=== PATIENT | male | born 1970 | race Caucasian/White ===

== ENCOUNTER 2020-08-15 10:38 | Outpatient (REF) | payer BC, SELFPAY ==
[2020-08-15 10:42] LABS: MANUAL DIFF FLAG NO
[2020-08-15 10:50] LABS: Basophils Absolute Auto 0.1 X10*3/uL (0.0-0.2); Eosinophils Absolute Auto 0.2 X10*3/uL (0.0-0.4); Eosinophils Percent Auto 3.2 % (0-4); Hematocrit 42.6 % (42-52); Hemoglobin 14.4 g/dl (14.0-18.0); Imm Gran Abs Auto 0.04 X10*3/uL (0.00-0.03); Imm Gran Pct Auto 0.6 % (0.0-0.4); Lymphocytes Percent Auto 32.6 % (20-40); Mean Corpuscular HGB Conc 33.8 g/dl (31.0-36.0); Mean Corpuscular Hemoglobin 29.6 pg (27.0-33.0); Mean Corpuscular Volume 87.7 fL (80-98); Mean Platelet Volume 10.3 fL (9.4-12.4); Monocytes Absolute Auto 0.6 X10*3/uL (0.1-1.2); Monocytes Percent Auto 9.6 % (2-11); Neutrophils Absolute Auto 3.3 X10*3/uL (2.0-8.3); Platelet Count 238 X10*3/uL (160-400); Red Blood Count 4.86 X10*6/uL (4.60-5.80); Red Cell Distribution Width 12.9 % (11.0-16.0); White Blood Count 6.2 X10*3/uL (4.8-10.8)
[2020-08-15 11:04] LABS: Glucose Urine UA NEG (NEG); Leukocyte Esterase Urine NEG (NEG); Nitrite Urine NEG (NEG); Specific Gravity - Urine <= 1.005 (1.005-1.025); Urine Blood NEG (NEG); Urine Ketones NEG (NEG); Urine Protein NEG (NEG-TRACE)
[2020-08-15 11:09] LABS: Appearance Urine CLEAR; Color Urine STRAW
[2020-08-15 11:19] LABS: Estimated Average Glucose 88 mg/dL; Hemoglobin A1c % 4.7 %
[2020-08-15 11:32] LABS: Creatinine Urine 49.36 mg/dL; Microalbumin Urine < 5.0 mg/L
[2020-08-15 11:57] LABS: Alanine Aminotransferase 36 U/L (0-40); Albumin Level 4.5 g/dL (3.5-5.0); Alkaline Phosphatase 68 U/L (39-117); Anion Gap 13 (12-20); Aspartate Amino Transferase 23 U/L (5-37); Bilirubin Total 0.6 mg/dL (0.0-1.0); Blood Urea Nitrogen 15 mg/dL (9-16); Calcium 9.1 mg/dL (8.4-10.2); Carbon Dioxide 23 mmol/L (22-29); Chloride 106 mmol/L (96-108); Cholesterol 147 mg/dL; Estimated Glomerular Filt Rate > 60; Glucose Fasting 96 mg/dL (60-99); HDL Cholesterol 47 mg/dL; LDL Cholesterol Calculated 83 mg/dl; Sodium 138 mmol/L (135-145); Triglycerides 85 mg/dL
[2020-08-15 12:07] LABS: PSA,Total (Free>4and<10) 0.36 ng/mL (0.00-4.00)
== END 2020-08-15 10:39 | disposition home or self-care (01) ==
LOC: HO.LNP 10:38
PROVIDERS: Visit Provider Internal Medicine
DX: Z00.00 Encounter for general adult medical examination without abnormal findings (principal); Z12.5 Encounter for screening for malignant neoplasm of prostate; E11.9 Type 2 diabetes mellitus without complications; I10 Essential (primary) hypertension
CPT/HCPCS: 80053; 80061; 81003; 82043; 83036; 84153; 85025

== ENCOUNTER 2021-10-06 13:52 | Outpatient (REF) | payer BC, SELFPAY ==
[2021-10-06 13:56] LABS: MANUAL DIFF FLAG NO
[2021-10-06 13:59] LABS: Appearance Urine HAZY; Color Urine YELLOW; Glucose Urine UA NEG (NEG); Leukocyte Esterase Urine NEG (NEG); Nitrite Urine NEG (NEG); PH 6.5 (5.0-8.0); Specific Gravity - Urine <= 1.005 (1.005-1.025); Urine Blood NEG (NEG); Urine Ketones NEG (NEG); Urine Protein NEG (NEG-TRACE)
[2021-10-06 14:00] LABS: Basophils Absolute Auto 0.1 X10*3/uL (0.0-0.2); Eosinophils Absolute Auto 0.2 X10*3/uL (0.0-0.4); Eosinophils Percent Auto 2.5 % (0-4); Hematocrit 43.5 % (42.0-52.0); Hemoglobin 14.8 g/dl (14.0-18.0); Imm Gran Abs Auto 0.04 X10*3/uL (0.00-0.03); Imm Gran Pct Auto 0.6 % (0.0-0.4); Lymphocytes Absolute Auto 1.3 X10*3/uL (1.2-4.9); Lymphocytes Percent Auto 18.9 % (20-40); Mean Corpuscular Hemoglobin 30.3 pg (27.0-33.0); Mean Corpuscular Volume 89.1 fL (80.0-98.0); Mean Platelet Volume 10.3 fL (9.4-12.4); Monocytes Absolute Auto 0.7 X10*3/uL (0.1-1.2); Monocytes Percent Auto 9.5 % (2-11); Neutrophils Absolute Auto 4.8 x10*3/uL (2.0-8.3); Neutrophils Percent Auto 67.5 % (45-73); Platelet Count 218 X10*3/uL (160-400); Red Blood Count 4.88 X10*6/uL (4.60-5.80); Red Cell Distribution Width 12.8 % (11.0-16.0); White Blood Count 7.1 X10*3/uL (4.8-10.8)
[2021-10-06 14:14] LABS: RBC Urine 0-2 /HPF (0); WBC Urine 0 /HPF (0-4)
[2021-10-06 14:26] LABS: Alanine Aminotransferase 54 U/L (0-40); Albumin Level 4.3 g/dL (3.5-5.0); Alkaline Phosphatase 67 U/L (39-117); Anion Gap 15 (12-20); Aspartate Amino Transferase 28 U/L (5-37); Bilirubin Total 0.7 mg/dL (0.0-1.0); Blood Urea Nitrogen 13 mg/dL (9-16); Carbon Dioxide 23 mmol/L (22-29); Chloride 104 mmol/L (96-108); Cholesterol 158 mg/dL; Estimated Glomerular Filt Rate > 60; Glucose Fasting 101 mg/dL (60-99); HDL Cholesterol 44 mg/dL; LDL Cholesterol Calculated 91 mg/dl; Sodium 138 mmol/L (135-145); Total Protein 6.8 g/dL (6.5-8.0); Triglycerides 118 mg/dL
[2021-10-06 14:33] LABS: PSA,Total (Free>4and<10) 0.33 ng/mL (0.00-4.00)
== END 2021-10-06 13:53 | disposition home or self-care (01) ==
LOC: HO.LNP 13:52
PROVIDERS: Visit Provider Internal Medicine
DX: Z00.00 Encounter for general adult medical examination without abnormal findings (principal); Z12.5 Encounter for screening for malignant neoplasm of prostate; I10 Essential (primary) hypertension
CPT/HCPCS: 80053; 80061; 81001; 84153; 85025

== ENCOUNTER 2022-07-10 07:26 | Day surgery (SDC) | payer BC, SELFPAY ==
[2022-07-06 10:48] VITALS: BMI 32.7
--- NOTE | 2022-07-09 12:01 | HO.ANESPROP2 ---
HPI - Anesthesia Eval Consult details Narrative: 51yo M for Upper Endoscopy and Colonoscopy [facility] Active Problems Active Problems: All Active Problems (Updated 07/06/22 @ 10:45 by Trisha Hoyos, RN) Encounter for screening colonoscopy (Acute) Past Medical History Medical History (Updated 07/06/22 @ 10:45 by Trisha Hoyos, RN) HTN (hypertension) TRAM (obstructive sleep apnea) Pre-diabetes Schatzki's ring Family History Family History Father HTN (hypertension) Surgical History Surgical History Hx of hernia repair Social History Social History (Updated 02/12/22 @ 13:48 by Elba Chester PA-C) Household Members: Family Alcohol intake: never Patient Tobacco Use Status: Never used Tobacco Current occupational status: employed 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
[2022-07-10 08:25] VITALS: BMI 33.4
--- NOTE | 2022-07-10 08:26 | MHC.SHP ---
Pre-Procedural Eval Section A Date of Service: 07/10/22 Section B Chief Complaint: screening for malignant neoplasm , reflux Relevant Family History (Specify if Yes): No Relevant Social History: None Present Medications: see Short Stay Collaborative assessment Medical History: Significant History (HTN (hypertension) TRAM (obstructive sleep apnea) Pre-diabetes Schatzki's ring) History of Previous Operations: Relevant previous surgery/procedure and date(s) (hernia repair) Allergies: Allergies Allergy/AdvReac Type Severity Reaction Status Date / Time lisinopril Allergy Cough Verified 07/10/22 08:20 Review of Systems Sugical H&P ROS: Negative: Constitution, Cardiovascular, Respiratory, Neurological, Psychiatric, Hem-Onc, Allergic/Immunologic, Gastrointestinal, Genitourinary, Musculoskeletal, Integumentary, Endocrine and Eyes/Ears/Nose/Throat Exam Surgical H&P Exam: Normal: HEENT, Normal: Heart, Normal: Lungs, Normal: Extremities, Normal: Abdomen, Normal: Skin and Normal: Neurological Plan Diagnosis/Plan: Unchanged I have reviewed the history and physical and performed a pertinent physical examination on my patient. No changes have occurred unless specified. Time Spent With Patient Time: Total time managing care of this patient today ____ minutes.
[2022-07-10 08:31] VITALS: BP 142/84; PULSE 64; RESP 15; TEMP 36.2; O2SAT 96
[2022-07-10] MEDS: Lactated Ringers 1,000 ML 100 ML IVCONT (08:49)
--- NOTE | 2022-07-10 08:53 | W.PM.OPN ---
Operative Note Operative Note Date of Service: 07/10/22 Narrative: Operative Information Procedure Description: EGD, Colonoscopy Indication: hx of reflux and screening colonoscopy Anesthesia: MAC FLEXIBLE TRANSORAL UPPER GASTROINTESTINAL ENDOSCOPY AND COLONOSCOPY PROCEDURE NOTE UPPER ENDOSCOPY Consent: Indications for the procedure and potential complications of bleeding, perforation, reaction to medications and missed diagnosis were discussed with the patient and informed consent was obtained. Instrument: Olympus GIF H 190 J mid size upper endoscope Monitoring: Vital signs and clinical assessment, continuous EKG monitoring, Pulse oximetry, Carbon Dioxide monitoring and blood pressure monitoring were done throughout the procedure. Procedure: The patient was placed in the left lateral decubitis position and pre-procedure medications were administered and a bite block was placed. The endoscope was inserted into the mouth and advanced under direct vision to the third part of duodenum. A careful inspection was made as the upper endoscope was withdrawn including a retroflexed examination of the proximal stomach; Findings and interventions are described below. Findings: Larynx:normal Esophagus: GE junction at 40 cm, diaphragm hiatus at 40 cm, schatzki ring noted with some erythema in distal esophagus bx taken Stomach: Mild erythematous mucosa with few small fundic gland polyps seen. Biopsies were obtained from the mucosa. Grade 2 flap valve on retroflexed examination of the cardia. Duodenum: Normal bulb and descending duodenum, Intervention: Biopsies as noted above COLONOSCOPY Instrument: Olympus variable stiffness pediatric scope 190L Colonoscopy Monitoring: Vital signs and clinical assessment, continuous EKG monitoring, Pulse oximetry, Carbon Dioxide monitoring and blood pressure monitoring were done throughout the procedure. Colon withdrawal time was 8 minutes. Procedure: The patient was placed in the left lateral decubitis position and pre-procedure medications were administered. After a digital rectal examination of the ano-rectum, the video colonoscope was inserted into the rectum and advanced through the colon to the cecum/TI. The colonoscope was slowly withdrawn in a retrograde panoramic fashion and the colon mucosa was carefully examined including a retroflexed view of the rectum. Findings and interventions are described below. Procedure Difficulty:easy Findings: Terminal Ileum-normal Cecum:normal Right sided retroflexion- normal Ascending Colon: normal Transverse Colon -normal Descending Colon:normal Sigmoid Colon: mild diverticulosis, Rectum: Retroflexion with small internal hemorrhoids, grade I, 10 mm sessile polyp removed with cold snare with one clip placed for hemostasis Anorectum - normal Colon preparation: Phoenix Bowel Preparation Scale Right colon; 2 Transverse colon: 3 Left colon; 3 (0 = Unprepared colon segment with mucosa not seen due to solid stool that cannot be cleared. 1 = Portion of mucosa of the colon segment seen, but other areas of the colon segment not well seen due to staining, residual stool and/or opaque liquid. 2 = Minor amount of residual staining, small fragments of stool and/or opaque liquid, but mucosa of colon segment seen well. 3 = Entire mucosa of colon segment seen well with no residual staining, small fragments of stool or opaque liquid) Impression and Post Procedure Diagnosis: Endoscopy Findings: schatzki ring esophagitis mild gastritis fundic gland polyps Colonoscopy Findings: polyp internal hemorrhoids diverticular disease Plan: Await Pathology results Repeat Colonoscopy in 5 years due to polyp or earlier if clinically indicated High fiber diet leaflet avoid straining at stool, epsom salts and sitz bath, anusol supps or cream GERd precautions Above findings were reviewed with the patient and relevant handouts were provided if indicated.
--- NOTE | 2022-07-10 08:55 | HO.ANESPROP2 ---
[facility] Active Problems Active Problems: All Active Problems (Updated 07/10/22 @ 08:18 by Zena Abdi RN) Encounter for screening colonoscopy (Acute) Past Medical History Medical History HTN (hypertension) TRAM (obstructive sleep apnea) Pre-diabetes Schatzki's ring Family History Family History Father HTN (hypertension) Family history of problems with anesthesia: No Surgical History Surgical History Hx of hernia repair History of Problems with Anesthesia: No Social History Social History Household Members: Family Alcohol intake: never Patient Tobacco Use Status: Never used Tobacco Use of substances other than those prescribed or required for medical reasons: No Are you DNR?: No Advance Directives: No Advance Directives Information Provided: Yes Current occupational status: employed 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 Meds Allergies Allergy/AdvReac Type Severity Reaction Status Date / Time lisinopril Allergy Cough Verified 07/10/22 08:20 Active Medications: Current Medications Lactated Ringer's (Lr) 1,000 mls @ 100 mls/hr IVCONT .Q10H VAMSHI Last Admin: 07/10/22 08:49 Dose: 100 mls/hr Ondansetron HCl (Ondansetron Hcl 4 Mg/2 Ml Vial) 4 mg IVPUSH ONCE PRN PRN Reason: Nausea and Vomiting Home Medications Medication Instructions Recorded Confirmed Last Taken Type trazodone 50 mg tablet 50 mg PO BEDTIME 02/12/22 07/06/22 Unknown History valsartan 80 1 tab PO DAILY 02/12/22 07/06/22 Unknown History mg-hydrochlorothiazide 12.5 mg tablet Vitamin D2 PO DAILY 07/10/22 Unknown History ascorbic acid (vitamin C) 500 mg 500 mg PO DAILY 07/10/22 07/10/22 Unknown History tablet (Vitamin C) cinnamon bark 500 mg capsule 1,000 mg PO DAILY 07/10/22 07/10/22 Unknown History (Cinnamon) magnesium 500 mg PO DAILY 07/10/22 07/10/22 Unknown History omeprazole 20 mg tablet,delayed 20 mg PO QAM 07/10/22 07/10/22 Unknown History release potassium PO DAILY 07/10/22 Unknown History vitamin B complex 1 tab PO DAILY 07/10/22 07/10/22 Unknown History Exam Exam Date and Time: July 10, 2022 0855 Height,Weight and Vital Signs: Height 5 ft 8 in Weight 99.79 kg Last Vital Signs Temp 97.1 F 07/10/22 08:31 Pulse 64 07/10/22 08:31 Resp 15 07/10/22 08:31 BP 142/84 H 07/10/22 08:31 Pulse Ox 96 07/10/22 08:31 O2 Del Method Room Air 07/10/22 08:31 Airway Mallampati Class: IV TM Dist: >3cm Neck ROM: Full Loose/Missing/Broken Teeth: No Heart: rrr Lungs: clear Assessment and Plan Final Anesthetic Review Family History of Problems with Anesthesia: No History of Problems with Anesthesia: No NPO: Yes ASA Class: II Final Preanesthetic Review: No Changes in Pt Med Stat, Meds/Allgs Chart Reviewed, Consent Obtained/Reviewed and Anes Risks/Benef Reviewed Patient Risk: Intermediate Anesthetic Plan Anesthetic Plan: MAC: Disposition: Standard PACU
[2022-07-10 09:39] VITALS: BP 122/76; PULSE 83; RESP 12; TEMP 36.9; O2SAT 95
[2022-07-10 09:54] VITALS: BP 123/78; PULSE 69; RESP 18; TEMP 36.9; O2SAT 98
== END 2022-07-10 10:15 | disposition home or self-care (01) ==
PROVIDERS: PCP Internal Medicine; Visit Provider Internal Medicine Gastroenterology
PROC: (CPT 45385; principal; 2022-07-10 09:10)
DX: Z12.11 Encounter for screening for malignant neoplasm of colon (principal); K62.1 Rectal polyp; K57.30 Diverticulosis of large intestine without perforation or abscess without bleeding; K64.0 First degree hemorrhoids; K21.00 Gastro-esophageal reflux disease with esophagitis, without bleeding; K22.2 Esophageal obstruction; K29.70 Gastritis, unspecified, without bleeding; K31.7 Polyp of stomach and duodenum; I10 Essential (primary) hypertension; G47.33 Obstructive sleep apnea (adult) (pediatric); R73.03 Prediabetes
CPT/HCPCS: 45385; 43239; 88305

== ENCOUNTER → 2022-08-30 07:23 | Outpatient (BNVA) | payer BC, SELFPAY | PROVIDERS: PCP Internal Medicine; Visit Provider Physician Assistant ==

== ENCOUNTER 2022-09-25 15:11 | Outpatient (AMB) | payer BC, SELFPAY ==
--- NOTE | 2022-09-25 15:24 | A.OFFVIS_ITS ---
Intake Vital Signs 09/25/22 15:32 Height 5 ft 8 in Weight 226 lb 4 oz BMI 34.4 BP 140/90 H Blood Pressure Location Lt brachial Position Sitting Pulse 68 Intake Visit Reasons: Umbilical hernia - [facility] notes scanned Intake Note: Patient is seen in office for evaluation and treatment of an recurrent umbilical hernia. 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 Accompanied by: Self / Same As Patient Allergies lisinopril Allergy (Verified 09/25/22 15:30) Cough Medication List - Last Reconciled 09/26/22 by Jamey Ledesma MD ascorbic acid (vitamin C) (Vitamin C) 500 mg PO DAILY cinnamon bark (Cinnamon) 1,000 mg PO DAILY [magnesium 500 mg PO DAILY] omeprazole 20 mg PO QAM [potassium PO DAILY] trazodone 50 mg PO BEDTIME valsartan-hydrochlorothiazide 80-12.5 mg 1 tab PO DAILY vitamin B complex 1 tab PO DAILY [Vitamin D2 PO DAILY] HPI HPI Comments History of Present Illness Details 51-year-old male patient with a prior history of an umbilical hernia performed on 04/10/2018 reported complaints of periumbilical abdominal pain and lump which developed over the past year. He feels the lump as gradually increased in size and does seem to increase in size with lifting and straining. The lump does not reduce when in the supine position. Denies nausea, vomiting, fever or chills. His previous hernia repair was performed without mesh. He feels the hernias higher above the umbilicus than the previous hernia repair. 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 Review of Systems Const All systems reviewed & are unremarkable except as noted in HPI and below ENT Denies dysphagia GI Reports as per HPI, Denies dysphagia, Denies diarrhea, Denies nausea and Denies vomiting Physical Exam Vital Signs: Last Vital Signs Pulse 68 09/25/22 15:32 BP 140/90 H 09/25/22 15:32 BMI result Body Mass Index 34.4 Const General: no acute distress and well developed Nutritional Appearance: well nourished Orientation/consciousness: patient oriented x3 Resp Effort & Inspection: normal respiratory effort, no audible wheezes, no cough and no respiratory distress GI Other: Small ventral hernia noted just above the umbilicus which increases with Valsalva maneuvers but reduces with light pressure partially. Minimal tenderness to palpation. No overlying skin changes appreciated. Inspection: Yes normal to inspection Palpation (GI): Soft to palpation, nontender, no guarding, not rigid and Hernia present ventral Abdomen image: 1. Site of ventral hernia Skin General skin exam: no rashes or lesions noted Neuro General: patient oriented x3 Extrem General: Yes no clubbing, cyanosis or edema Assessment & Plan Assessment & Plan (1) Ventral hernia: Code(s): K43.9 - Ventral hernia without obstruction or gangrene Plan 51-year-old male patient with a previous history of an umbilical hernia repair in 2019 returning now with a new hernia located just above the umbilicus consistent with a ventral hernia. The defect measures approximately 2 cm in diameter. He is currently generally asymptomatic. We discussed the repair of this ventral hernia including the procedure, risks and alternatives. He wishes to hold off on surgery but will call after he discusses this with his when he is ready to schedule. Coding Level of Care Code New Pt Level 4 (53370) Diagnoses Ventral hernia K43.9
[2022-09-25 15:32] VITALS: BP 140/90; PULSE 68; BMI 34.4
== END 2022-09-25 15:46 | disposition home or self-care (01) ==
PROVIDERS: PCP Internal Medicine; Referring Provider Physician Assistant; Visit Provider Surgery
DX: K43.9 Ventral hernia without obstruction or gangrene (principal)
CPT/HCPCS: 99203

== ENCOUNTER → 2022-09-25 15:11 | Outpatient (BNVA) | payer BC, SELFPAY | PROVIDERS: PCP Internal Medicine; Referring Provider Physician Assistant; Visit Provider Surgery ==

== ENCOUNTER 2022-10-16 11:09 | Outpatient (REF) | payer BC, SELFPAY ==
[2022-10-16 11:12] LABS: MANUAL DIFF FLAG NO
[2022-10-16 11:29] LABS: Appearance Urine Clear; Color Urine Yellow; Glucose Urine UA Negative (Negative); Leukocyte Esterase Urine Negative (Negative); Nitrite Urine Negative (Negative); Specific Gravity - Urine 1.015 (1.005-1.025); Urine Blood Negative (Negative); Urine Ketones Negative (Negative); Urine Protein Negative (Neg-Trace)
[2022-10-16 11:33] LABS: Basophils Absolute Auto 0.1 X10*3/uL (0.0-0.2); Basophils Percent Auto 0.8 % (0-2); Eosinophils Absolute Auto 0.3 X10*3/uL (0.0-0.4); Eosinophils Percent Auto 3.9 % (0-4); Hemoglobin 15.2 g/dl (14.0-18.0); Imm Gran Abs Auto 0.02 X10*3/uL (0.00-0.03); Imm Gran Pct Auto 0.3 % (0.0-0.4); Lymphocytes Absolute Auto 1.7 X10*3/uL (1.2-4.9); Lymphocytes Percent Auto 26.3 % (20-40); Mean Corpuscular HGB Conc 34.5 g/dl (31.0-36.0); Mean Corpuscular Hemoglobin 30.5 pg (27.0-33.0); Mean Corpuscular Volume 88.2 fL (80.0-98.0); Mean Platelet Volume 10.3 fL (9.4-12.4); Monocytes Absolute Auto 0.7 X10*3/uL (0.1-1.2); Monocytes Percent Auto 11.4 % (2-11); Neutrophils Absolute Auto 3.7 x10*3/uL (2.0-8.3); Neutrophils Percent Auto 57.3 % (45-73); Platelet Count 223 X10*3/uL (160-400); Red Blood Count 4.99 X10*6/uL (4.60-5.80); Red Cell Distribution Width 12.8 % (11.0-16.0); White Blood Count 6.4 X10*3/uL (4.8-10.8)
[2022-10-16 11:35] LABS: Bacteria Urine None Seen (None Seen); Hyaline Casts Urine 0-2 /LPF (0-2); RBC Urine 0-2 /HPF (0-2); Squamous Epithelial Cell Urine 0-2 /HPF (0-2); WBC Urine 0-5 /HPF (0-5)
[2022-10-16 11:50] LABS: Alanine Aminotransferase 59 U/L (0-40); Albumin Level 4.3 g/dL (3.5-5.0); Alkaline Phosphatase 60 U/L (39-117); Anion Gap 12 (12-20); Aspartate Amino Transferase 33 U/L (5-37); Bilirubin Total 0.7 mg/dL (0.0-1.0); Blood Urea Nitrogen 16 mg/dL (9-16); Calcium 9.6 mg/dL (8.4-10.2); Carbon Dioxide 25 mmol/L (22-29); Chloride 104 mmol/L (96-108); Cholesterol 154 mg/dL (<200); Estimated Glomerular Filt Rate > 60; Glucose Fasting 101 mg/dL (60-99); HDL Cholesterol 49 mg/dL (>40); LDL Cholesterol Calculated 81 mg/dL (<100); Potassium 3.8 mmol/L (3.3-5.1); Sodium 137 mmol/L (135-145); Total Protein 7.1 g/dL (6.5-8.0); Triglycerides 121 mg/dL (<150)
[2022-10-16 12:08] LABS: PSA,Total (Free>4and<10) 0.38 ng/mL (0.00-4.00)
== END 2022-10-16 11:10 | disposition home or self-care (01) ==
LOC: HO.LNP 11:09
PROVIDERS: PCP Internal Medicine; Visit Provider Internal Medicine
DX: Z00.00 Encounter for general adult medical examination without abnormal findings (principal); Z12.5 Encounter for screening for malignant neoplasm of prostate; I10 Essential (primary) hypertension
CPT/HCPCS: 80053; 80061; 81001; 84153; 85025

== ENCOUNTER 2023-02-28 08:05 | Outpatient (REF) | payer BC, SELFPAY | END 2023-02-28 08:06 | disposition home or self-care (01) | LOC: HO.LAB 08:05 | PROVIDERS: Visit Provider Podiatrist | DX: B35.1 Tinea unguium (principal) | CPT/HCPCS: 36415; 80076 ==

== ENCOUNTER 2023-09-27 08:18 | Outpatient (REF) | payer BC, SELFPAY ==
[2023-09-27 09:45] LABS: Alanine Aminotransferase 41 U/L (0-40); Albumin Level 4.5 g/dL (3.5-5.0); Alkaline Phosphatase 67 U/L (39-117); Aspartate Amino Transferase 23 U/L (5-37); Bilirubin Direct 0.2 mg/dL (0.0-0.5); Bilirubin Total 0.7 mg/dL (0.0-1.0); Total Protein 7.4 g/dL (6.5-8.0)
== END 2023-09-27 08:19 | disposition home or self-care (01) ==
LOC: HO.LAB 08:18
PROVIDERS: PCP Internal Medicine; Visit Provider Podiatrist
DX: B35.1 Tinea unguium (principal)
CPT/HCPCS: 36415; 80076

== ENCOUNTER 2023-10-11 10:27 | Outpatient (REF) | payer BC, SELFPAY ==
[2023-10-11 10:31] LABS: MANUAL DIFF FLAG NO
[2023-10-11 10:44] LABS: Basophils Absolute Auto 0.1 X10*3/uL (0.0-0.2); Eosinophils Absolute Auto 0.2 X10*3/uL (0.0-0.4); Eosinophils Percent Auto 2.2 % (0-4); Hematocrit 42.3 % (42.0-52.0); Hemoglobin 14.6 g/dl (14.0-18.0); Imm Gran Abs Auto 0.06 X10*3/uL (0.00-0.03); Imm Gran Pct Auto 0.9 % (0.0-0.4); Lymphocytes Absolute Auto 1.6 X10*3/uL (1.2-4.9); Mean Corpuscular HGB Conc 34.5 g/dl (31.0-36.0); Mean Corpuscular Hemoglobin 30.2 pg (27.0-33.0); Mean Corpuscular Volume 87.4 fL (80.0-98.0); Mean Platelet Volume 10.3 fL (9.4-12.4); Monocytes Absolute Auto 0.7 X10*3/uL (0.1-1.2); Monocytes Percent Auto 10.1 % (2-11); Neutrophils Absolute Auto 4.3 x10*3/uL (2.0-8.3); Neutrophils Percent Auto 62.8 % (45-73); Platelet Count 221 X10*3/uL (160-400); Red Blood Count 4.84 X10*6/uL (4.60-5.80); Red Cell Distribution Width 12.8 % (11.0-16.0); White Blood Count 6.8 X10*3/uL (4.8-10.8)
[2023-10-11 10:50] LABS: Bacteria Urine None Seen (None Seen); RBC Urine 0-2 /HPF (0-2); Squamous Epithelial Cell Urine 0-2 /HPF (0-2); WBC Urine 0-5 /HPF (0-5)
[2023-10-11 10:54] LABS: Alanine Aminotransferase 29 U/L (0-40); Albumin Level 4.2 g/dL (3.5-5.0); Alkaline Phosphatase 61 U/L (39-117); Anion Gap 11 (12-20); Aspartate Amino Transferase 21 U/L (5-37); Bilirubin Total 0.6 mg/dL (0.0-1.0); Blood Urea Nitrogen 14 mg/dL (9-16); Calcium 9.3 mg/dL (8.4-10.2); Carbon Dioxide 26 mmol/L (22-29); Chloride 106 mmol/L (96-108); Cholesterol 159 mg/dL (<200); Estimated Glomerular Filt Rate > 60; Glucose Fasting 98 mg/dL (60-99); HDL Cholesterol 45 mg/dL (>40); LDL Cholesterol Calculated 87 mg/dL (<100); Potassium 4.2 mmol/L (3.3-5.1); Sodium 139 mmol/L (135-145); Triglycerides 138 mg/dL (<150)
[2023-10-11 11:10] LABS: Appearance Urine Clear; Color Urine Yellow; Glucose Urine UA Negative (Negative); Leukocyte Esterase Urine Negative (Negative); Nitrite Urine Negative (Negative); Urine Blood Negative (Negative); Urine Ketones Negative (Negative); Urine Protein Trace mg/dL (Neg-Trace)
[2023-10-11 11:16] LABS: PSA,Total (Free>4and<10) 0.42 ng/mL (0.00-4.00)
== END 2023-10-11 10:28 | disposition home or self-care (01) ==
LOC: HO.LNP 10:27
PROVIDERS: Visit Provider Internal Medicine
DX: Z00.00 Encounter for general adult medical examination without abnormal findings (principal); I10 Essential (primary) hypertension; K57.20 Diverticulitis of large intestine with perforation and abscess without bleeding; Z12.5 Encounter for screening for malignant neoplasm of prostate
CPT/HCPCS: 80053; 80061; 81001; 84153; 85025

== ENCOUNTER 2023-11-15 08:21 | Outpatient (REF) | payer BC, SELFPAY | END 2023-11-15 08:22 | disposition home or self-care (01) | LOC: HO.SH 08:21 | PROVIDERS: Visit Provider Internal Medicine | DX: Z01.118 Encounter for examination of ears and hearing with other abnormal findings (principal); H90.3 Sensorineural hearing loss, bilateral; H93.13 Tinnitus, bilateral | CPT/HCPCS: 92557 ==

== ENCOUNTER 2023-11-25 08:27 | Outpatient (AMB) | payer BC, SELFPAY ==
--- NOTE | 2023-11-25 08:31 | A.OFFVIS_ITS ---
VS Expanded 11/25/23 08:42 11/26/23 20:33 Height 5 ft 8 in 5 ft 8 in Weight 230 lb 6.129 oz 230 lb BMI 35.0 35.0 Intake Visit Reasons: GERD/LVM Allergies lisinopril Allergy (Verified 09/25/22 15:30) Cough Nutrition Presentation Details: Pt presents for MNT for GERD and obesity. The Pt was referred by his PCP Pt reports lack of meal planning/ eating on the go Reports gradual weight gain, at 205 lbs in 2019, 218 in 2022 and 230 today (2023) cardio - cycling 120 min per week (20-30 min intervals) 6-8 : eggs on Mauritan[place] muffin and yogurt water, coffee no sugar Lunch: on the go , typically fast food meals snacks on nuts/dried meat almonds dinner: healthy plate method BS Monitoring Most Recent Diabetes Results: Cholesterol 159 mg/dL (<200) 10/11/23 HDL Cholesterol 45 mg/dL (>40) 10/11/23 Triglycerides 138 mg/dL (<150) 10/11/23 Creatinine 1.04 mg/dL (0.5-1.4) 10/11/23 Blood Urea Nitrogen 14 mg/dL (9-16) 10/11/23 Sodium 139 mmol/L (135-145) 10/11/23 Potassium 4.2 mmol/L (3.3-5.1) 10/11/23 Chloride 106 mmol/L (96-108) 10/11/23 Carbon Dioxide 26 mmol/L (22-29) 10/11/23 Calcium 9.3 mg/dL (8.4-10.2) 10/11/23 AST 21 U/L (5-37) 10/11/23 ALT 29 U/L (0-40) 10/11/23 Total Protein 7.0 g/dL (6.5-8.0) 10/11/23 Albumin 4.2 g/dL (3.5-5.0) 10/11/23 [id number]-Vy.Jeor Equation Height: 5 ft 8 in Weight: 230 lb Resting Metabolic Rate: 1875.80 Calculated Activity Level: Mild Activity Calories Needed to Maintain Weight: 2579.23 Diagnosis Nutrition problem #1: food nutri know defi As related to (etiology) #1: diagnosis As evidenced by (sign/symptom) #1: knowledge deficit of diet [facility] Medical History HTN (hypertension) TRAM (obstructive sleep apnea) Pre-diabetes Schatzki's ring Surgical History History of esophagogastroduodenoscopy (EGD) History of umbilical hernia repair (04/10/18) History of vasectomy (2009) Hx of colonoscopy Family History Father HTN (hypertension) Social History Household Members: Family Alcohol intake: never Patient Tobacco Use Status: Never used Tobacco Current occupational status: employed 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 Assessment & Plan Assessment & Plan (1) Obesity (BMI 30-39.9): Comment: Pt also has GERD Code(s): E66.9 - Obesity, unspecified Category: Medical Plan: Wt:104 Kg ( 11/18 ) Est kcal needs as per MSJ: 2600 (40% carb, 30% protein/fat) Est fluid needs as per 25-30 ml/d: 3100 Est prot per day as per 1 g/kg bw: 104 Recommend fiber intake : 8-10 g per day and gradually increase to 25-28 g per day for women and 35-38 g for men or as tolerated Recommend sodium intake per day : less than 2300 mg Educated patient on: ( R = reviewed V = verbalizes understanding N/R = needs review N/A = not applicable * Food sources of carbohydrate, adequate serving sizes and its role in various health conditions: R V N/R * Differences between complex carbohydrates a simple carbohydrates, role of fiber in diet: R V N/R * Lean protein sources of foods: R V NR * Differences between types of fats and role in diet (mono on saturated fat fatty acids, saturated fatty acids, trans fats): R basic * Food sources of sodium in salt and healthy modifications for heart health in kidney health: R V R/V * Vitamins and minerals: R V N/R * Healthy plate method concept: R * Physical activity: Benefits a precaution: R V * Patient Instructions: Opt for sandwich on whole grain bread with vegetables for lunch 4 times a week (vary your protein options and veg) working n reducing on high fat fast food meals Coding Level of Care Code Nutr Indiv Intake (72753) Diagnoses Obesity (BMI 30-39.9) E66.9 Time Spent (min) 30
[2023-11-25 08:42] VITALS: BMI 35.0
[2023-11-26 20:33] VITALS: BMI 35.0
== END 2023-11-25 09:19 | disposition home or self-care (01) ==
PROVIDERS: PCP Internal Medicine; Visit Provider Dietitian, Registered
DX: E66.9 Obesity, unspecified (principal)

== ENCOUNTER → 2023-11-25 08:27 | Outpatient (BNVA) | payer BC, SELFPAY | PROVIDERS: PCP Internal Medicine; Visit Provider Dietitian, Registered | DX: E66.9 Obesity, unspecified (principal); Z68.35 Body mass index [BMI] 35.0-35.9, adult; K21.9 Gastro-esophageal reflux disease without esophagitis; Z71.3 Dietary counseling and surveillance | CPT/HCPCS: 97802 ==

== ENCOUNTER 2024-02-10 10:28 | Outpatient (AMB) | payer BC, SELFPAY ==
--- OUTSIDE RECORDS SUMMARY | 2024-02-10 10:30 | XMS_ITS ---
Author Organization [facility] Address [address] [place] [address] Care Team Providers Care Forming Roll Operator Name Role Phone Sen Fairchild MD Primary Care Provider Arleth Santillan [phone] Encounters Encounter Location Date Provider Diagnosis [address] [address] 02/04/2024 Arleth Porras Plan Of Treatment Next Appt Details Provider Name:Arleth merlos, 03/27/2024 12:45:00 PM, [address] [place] [address], [phone], Progress Notes * Zacarias EVANSDOB:1970 (53 yo M)Acc No.[id number]:02/04/2024 Progress Note Patient:?Zacarias EVANS Provider:?Arleth Porras DPM :1970???Age:53 Y???Sex:Male Jean Carlos e:02/04/2024 Address:[address] [place] [address] Pcp:Sen Fairchild MD Subjective: * Chief Complaints: * ??? * Medical History:? Objective: * Vitals:? Assessment: Plan: * Treatment: * Images: * The named appointment provid er may or may not be the originator of this progress note, and it is not deemed complete until electronically signed by the appointment provider. Sign off status: Pending * Provider:?Arleth Porras DPM Date:?11/2023 Generated for Samira weber/Kavitha/Kathryn on:?02/10/2024 10:30 AM EST
--- OUTSIDE RECORDS SUMMARY | 2024-02-10 10:31 | XMS_ITS | Patient Health Record ---
Author Organization [facility] Address [address] [place] [address] Care Team Providers Care Chemist Biological Name Role Phone Sen Fairchild MD Primary Care Provider Arleth Santillan Unavailable [phone] Allergies No Known Allergies Reason For Referral Diagnosis 1 Tinea unguium (B35.1 ) Diagnosis 2 Pain in right toe(s) (M79.674) Diagnosis 3 Pain in left toe(s) (M79.675) Diagnosis 4 Pain in left ankle a nd joints of left foot (M25.572) Diagnosis 5 Primary osteoarthrit is, left ankle and foot (M19.072) Diagnosis 6 Metatarsalgia, right foot (M77.41) Diagnosis 7 Pain in left foot (M 79.672) Diagnosis 8 Plantar wart (B07.0) Diagnosis 9 Tinea pedis of both feet (B35.3) Diagnosis 10 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) Diagnosis 11 Metatarsalgia, left foot (M77.42) Diagnosis 12 Tinea pedis (B35.3) Referring Provider First Name Sen Referring Provider Last Name Devorah [facility] Referred Provider Arleth Porras Referred Address [address] [place], [place],[address], Referred Provider Specialty Podiatry Referral Priority Routine Medications Medication SIG (Take, Route, Frequency, Duration) Notes Start Date End Date Status Folic Acid 800 MCG 1 tablet Orally Once a day Active Vitamin C Active Magnesium Active traZODone HCl 50 MG 1 tablet at bedtime as needed Orally Once a day for 30 day(s) Active Omeprazole 20 MG 1 capsule 30 minutes before morning meal Orally Once a day Active Lamisil 250mg 1 tablet for 7 days, stop for 3 weeks repeat cycle orally 1 tablet for 7 days,stop for 3 weeks repeat cycle for 365 days Active Ciclopirox Olamine 0.77 % 1 application Externally Twice a day for 30 days Active Valsartan 80 MG 1 tablet Orally Once a day Active Vitamin D Active Ciclopirox Olamine 0.77% external Apply to effected areas twice a day for 30 days 05/10/2015 Not-Taking Paxil 20 MG 1 tablet in the morn ing Orally Once a day Not-Taking Ciclopirox Olamine 0.77 % 1 application Externally Twice a day for 30 days Not-Taki ng Calcium Not-Taking Social History Tobacco Use: Social History Observation Description Date Details (start date - stop date) Never Smoker NA - NA Tobacco Use/Smoking Question Answer Notes Are you a: nonsmoker Additional Findings: Tobacco Non-User Current no n-smoker Alcohol Screen Question Answer Notes Did you have a drink contain ing alcohol in the past year? Yes How often did you have a dri nk containing alcohol in the past year? 2 to 3 times a week (3 points) Points 3 Interpretation Negative Tobacco use other than smoking: Question Answer Notes Are you an other tobacco user? No Problems Problem Type SNOMED Code ICD Code Onset Dates Problem Status W/U Status Risk Notes Problem [id number] Plantar wart (B07.0) Active confirmed Vital Signs Blood pressure diastolic 80 mm Hg 11/06/2023 Height 5ft8in in 11/06/2023 Blood pressure systolic 124 mm Hg 11/06/2023 Weight 220 lbs 11/06/2023 BMI 33.45 kg/m2 11/06/2023 Encounters Encounter [facility] Date [facility] [address] 03/20/2023 Arleth Porras Tinea pedis of both feet B35.3 ; Fungal infection of nail B35.1 ; Left foot pain M79.672 ; Plantar wart B07.0 ; Pain in right toe(s) M79.674 and Pain in left toe(s) M79.[address] [facility] [address] 04/23/2023 Arleth Perica Left foot pain M79.672 and Plantar wart B07.[address] [address] 07/19/2023 Arleth Perica Fungal infection of nail B35.1 ; Plantar wart B07.0 ; Tinea pedis of both feet B35.3 ; Left foot pain M79.672 ; Pain in right toe(s) M79.674 and Pain in left toe(s) M79.[address] [address] 11/06/2023 Arleth Perica Fungal infection of nail B35.1 ; Plantar wart B07.0 ; Tinea pedis of both feet B35.3 ; Left foot pain M79.672 ; Pain in right toe(s) M79.674 and Pain in left toe(s) M79.[address] [address] 03/01/2023 Arleth Porras [address] [address] 09/27/2023 [facility] [address] 01/30/2024 Arleth Porras Assessments Encounter Date Diagnosis (ICD Code) Assessment Notes Treatment Notes Treatment Clinical Notes Section Notes 03/20/2023 Tinea pedis of both feet (ICD-10 - B35.3) 04/23/2023 Left foot pain (ICD-10 - M79.672) 07/19/2023 Plantar wart (ICD-10 - B07.0) 07/19/2023 Fungal infection of nail (ICD-10 - B35.1) 11/06/2023 Fungal infection of nail (ICD-10 - B35.1) 11/06/2023 Plantar wart (ICD-10 - B07.0) 07/19/2023 Tinea pedis of both feet (ICD-10 - B35.3) 03/20/2023 Fungal infection of nail (ICD-10 - B35.1) 04/23/2023 Plantar wart (ICD-10 - B07.0) 03/20/2023 Left foot pain (ICD-10 - M79.672) 11/06/2023 Tinea pedis of both feet (ICD-10 - B35.3) 07/19/2023 Left foot pain (ICD-10 - M79.672) 07/19/2023 Pain in right toe(s) (ICD-10 - M79.674) 11/06/2023 Left foot pain (ICD-10 - M79.672) 03/20/2023 Pain in right toe(s) (ICD-10 - M79.674) 03/20/2023 Plantar wart (ICD-10 - B07.0) 03/20/2023 Pain in left toe(s) (ICD-10 - M79.675) 07/19/2023 Pain in left toe(s) (ICD-10 - M79.675) 11/06/2023 Pain in right toe(s) (ICD-10 - M79.674) 11/06/2023 Pain in left toe(s) (ICD-10 - M79.675) Plan Of Treatment Pending Test Test Name Order Date *Liver Function Test (LFT) 11/16/2022 *Liver Function Test (LFT) 07/19/2023 *Liver Function Test (LFT) 11/06/2023 X ray : Foot, left 3V 03/30/2022 X ray : Foot, right 3V 03/30/2022 [id number] NAIL, 6 OR MORE 05/10/2015 [id number] NAIL, 6 OR MORE 09/15/2015 [id number] NAIL, 6 OR MORE 03/07/2016 [id number] NAIL, 1-5 04/05/2015 Next Appt Details Provider Name:Arleth merlos, 03/27/2024 12:45:00 PM, [address] [place], [address], Insurance Providers Payer Name Payer Address Payer Phone Subscriber Number Group Number Insured Name Patient Relationship to Insured Coverage Start Date Coverage End Date [facility] [address] [place], [place] [address] [id number] Zacarias Evans Self - patient is the insured Medical (General) History Medical History History ICD Code Arthritis Chicken pox Hypertension Surgical History Surgery Date(Month/Year) hernia 04/15
--- OUTSIDE RECORDS SUMMARY | 2024-02-10 10:31 | XMS_ITS ---
Author Organization [facility] Address [address] [place] [address] Care Team Providers Care Data Entry Supervisor Name Role Phone Sen Fairchild MD Primary Care Provider Arleth Santillan [phone] REASON FOR VISIT r/s 02/03 Encounters Encounter Location Date Provider Diagnosis [address] [address] 01/30/2024 Arleth Porras Plan Of Treatment Next Appt Details Provider Name:Arleth merlos, 03/27/2024 12:45:00 PM, [address] [place] [address], [phone], Progress Notes * Zacarias EVANSDOB:1970 (53 yo M)Acc No.[id number]:01/30/2024 Patient:?NATHANZacarias Lee :1970???Age:53 Y???Sex:Male Address:[address] [place] [id number] * true * Date:? Generated for Printi ng/Kavitha/eTransmitting on:?02/10/2024 10:30 AM EST
--- OUTSIDE RECORDS SUMMARY | 2024-02-10 10:31 | XMS_ITS ---
[facility] Address [address] [place] [address] Care Team Providers Care Switchbox Assembler Name Role Phone Sen Fairchild MD Primary Care Provider Arleth Santillan Unavailable [phone] Allergies No Known Allergies REASON FOR VISIT Fungal Nails, Skin Problem, Wart(s) Medications Medication SIG (Take, Route, Frequency, Duration) Notes Start Date End Date Status Lamisil 250mg 1 tablet for 7 days, stop for 3 weeks repeat cycle orally 1 tablet for 7 days,stop for 3 weeks repeat cycle for 365 days Active Ciclopirox Olamine 0.77% external Apply to effected areas twice a day for 30 days 05/10/2015 Not-Taking Paxil 20 MG 1 tablet in the morn ing Orally Once a day Not-Taking Ciclopirox Olamine 0.77 % 1 application Externally Twice a day for 30 days Not-Taki ng Calcium Not-Taking Ciclopirox Olamine 0.77 % 1 application Externally Twice a day for 30 days Active Valsartan 80 MG 1 tablet Orally Once a day Active Vitamin D Active Vitamin C Active Magnesium Active Folic Acid 800 MCG 1 tablet Orally Once a day Active traZODone HCl 50 MG 1 tablet at bedtime as needed Orally Once a day for 30 day(s) Active Omeprazole 20 MG 1 capsule 30 minutes before morning meal Orally Once a day Active Social History Tobacco Use: Social History Observation Description Date Details (start date - stop date) Never Smoker NA - NA Tobacco Use/Smoking Question Answer Notes Are you a: nonsmoker Additional Findings: Tobacco Non-User Current no n-smoker Tobacco use other than smoking: Question Answer Notes Are you an other tobacco user? No Vital Signs Height 5ft8in in 11/06/2023 Weight 220 lbs 11/06/2023 BMI 33.45 kg/m2 11/06/2023 Blood pressure systolic 124 mm Hg 11/06/19 24 Blood pressure diastolic 80 mm Hg 024 Encounters Encounter Location Date Provider Diagnosis [facility] [address] [place] [address] 11/06/2023 Arleth Porras Fungal infection of nail B35.1 ; Plantar wart B07.0 ; Tinea pedis of both feet B35.3 ; Left foot pain M79.672 ; Pain in right toe(s) M79.674 and Pain in left toe(s) M79.675 Assessments Encounter Date Diagnosis (ICD Code) Assessment Notes Treatment Notes Treatment Clinical Notes Section Notes 11/06/2023 Fungal infection of nail (ICD-10 - B35.1) 11/06/2023 Plantar wart (ICD-10 - B07.0) 11/06/2023 Tinea pedis of both feet (ICD-10 - B35.3) 11/06/2023 Left foot pain (ICD-10 - M79.672) 11/06/2023 Pain in right toe(s) (ICD-10 - M79.674) 11/06/2023 Pain in left toe(s) (ICD-10 - M79.675) Plan Of Treatment Pending Test Test Name Order Date *Liver Function Test (LFT) 11/06/2023 Next Appt Details Follow Up: 3 Months, Reason: Provider Name:Arleth merlos, 03/27/2024 12:45:00 PM, [address] [place] [address], [phone], Procedure Notes * Category Sub-Category Detail Notes Debride Nail 6-10 Nail debridement Nail debridem ent performed extensively to reduce/remove overall nail length, girth, thickness, subungual debris, and necrotic tissue, by manual and electrical means through the use of a nail nipper and/or dremel, to more viable healthy nail plate or bed tissue 1-5. Silver nitrate used for any petechial bleeding as necessary. Patient chooses, oral Lamisil antifungal treatment, ([id number]) Progress Notes * Zacarias EVANSDOB:1970 (52 yo M)Acc No.[id number]:11/06/2023 Progress Note Patient:Zacarias Dodge Provider:?Arleth Porras DPM :1970???Age:52 Y???Sex:Male Jean Carlos e:11/06/2023 Address:[address] [place] [address] Pcp:Sen Fairchild MD Subjective: * Chief Complaints: * ???Fungal NailsSkin ProblemW art(s) * HPI: ???Skin problems:?Pt States PCP Visit: ?DATE?10/25/2023 ???Painful Nails:?Nature:?aching, tender, discolored, thick.?Duration:?several years.?Course:?improved.?Aggravated by:?shoegear causing difficulty standing/walking.?Treatments:?Formula 7 , Topical Antifungal , Oral Antifungal , Pulse Dose PO Antifungal Treatment-started in Feb 2023.? * ROS:?General/Constitutional:?Nausea?denies, denies.?Vomiting?denies, denies.?Hunger Thirst?denies, denies.?Loss appetite?denies, denies.?Chills?denies, denies.?Fatigue?denies, denies.?Fever?denies, denies.?Night Sweats denies, denies.?Unexplained weight loss?denies, denies.?Ophthalmologic:?Blurred vision?denies, denies.?Red eye?denies, denies.?HEENTM:?Dentures?denies, denies.?Dizziness?denies, denies.?Glasses/contacts?denies, denies.?Retinopathy?denies, denies.?Blurred/double vision?denies, denies.?TMJ?denies, denies.?Discharge/drainage?denies, denies.?Implants?denies, denies.?Hard of hearing ?denies, denies.?Difficulty chewing/swallowing/speaking?denies, denies.?Nose bleeds?denies, denies.?Sore mouth?denies, denies.?Swollen glands?denies, denies.?Respiratory:?On Oxygen?denies, denies.?Pneumonia/pleurisy?denies, denies.?Bronchitis?denies, denies.?Emphysema?denies, denies.?Coughing?denies, denies.?Cough blood?denies, denies.?Shortness of breath?denies, denies.?Wheezing?denies, denies.?Cardiovascular:?Pacemaker?denies, denies.?MVP?denies, denies.?WPW?denies, denies.?CHF?denies, denies.?Heart attack?denies, denies.?Septal defect?denies, denies.?Rapid beat?denies, denies.?Chest pain ?denies, denies.?Atrial Fib.?denies, denies.?Murmur/Palpitations?denies, denies.?Gastrointestinal:?Hemorrhoids?denies, denies.?Stomach/Abdominal pain?denies, denies.?Dark blood stool?denies, denies.?Irritable bowel ?denies, denies.?Constipation?denies, denies.?Diarrhea?denies, denies.?Vomiting?denies, denies.?Hematology:?Swelling?denies, denies.?Bruising?denies, denies.?Bleeding problem?denies, denies.?Genitourinary:?Blood urine?denies, denies.?Frequent/Painfu/urination/bladder control?denies, denies.?Kidney stones?denies, denies.?Infection (UTI)?denies, denies.?Nephropathy?denies, denies.?Musculoskeletal:?Hammertoes?denies, denies.?Bunions?denies, denies.?Scoliosis/kyphosis?denies, denies.?Muscle cramps / walking?denies, denies.?Generalized aches and pains?denies, denies.?Weakness?denies, denies.?Integ.:?Kern?denies, denies.?Scars?denies, denies.?Corns/calluses?denies, denies.?Ingrown nails?denies, denies.?Painful nails?denies, denies.?Rashes?denies, denies.?Neurologic:?Difficulty sleeping?denies, denies.?Bipolar?denies, denies.?Brain disorder?denies, denies.?Balance trouble?denies, denies.?Confusion?denies, denies.?Fainting/blackouts?denies, denies.?Headache?denies, denies.?Tremors?denies, denies.? * Medical History:? * Surgical History:?hernia 03/28 9 * Hospitalization/Major Diagno stic Procedure:?Denies Past Hospitalization * Family History:?Mother: dece ased.?Father: , diagnosed with Family history of arthritis, Unspecified essential hypertension.?Paternal Grand Mother: kidney disease, liver disease.?Paternal Grand Father: kidney disease, liver disease, diagnosed with Other malignant neoplasm of unspecified site.? * Social History:?Tobacco Use:?Tobacco Use/Smoking?Are you a:?nonsmoker ?Additional Findings: Tobacco Non-User?Current non-smoker ?Tobacco use other than smoking?Are you an other tobacco user??No ???Miscellaneous:?Caffeine: yes, 1-2 cups per day. ?Children: yes, 2. ?Exercise: yes, cycling. ?Marital status: . 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 * Medications:?TakingFolic Aci d 800 MCG Tablet 1 tablet Orally Once a dayOmeprazole 20 MG Capsule Delayed Release 1 capsule 30 minutes before morning meal Orally Once a daytraZODone HCl 50 MG Tablet 1 tablet at bedtime as needed Orally Once a dayMagnesium Vitamin C Vitamin D Valsartan 80 MG Tablet 1 tablet Orally Once a dayCiclopirox Olamine 0.77 % Cream 1 application Externally Twice a dayLamisil 250mg tablet 1 tablet for 7 days,stop for 3 weeks repeat cycle orally 1 tablet for 7 days,stop for 3 weeks repeat cycleTaking Folic Acid 800 MCG Tablet 1 tablet Orally Once a dayTaking Omeprazole 20 MG Capsule Delayed Release 1 capsule 30 minutes before morning meal Orally Once a dayTaking traZODone HCl 50 MG Tablet 1 tablet at bedtime as needed Orally Once a dayTaking Magnesium Taking Vitamin C Taking Vitamin D Taking Valsartan 80 MG Tablet 1 tablet Orally Once a dayTaking Ciclopirox Olamine 0.77 % Cream 1 application Externally Twice a dayTaking Lamisil 250mg tablet 1 tablet for 7 days,stop for 3 weeks repeat cycle orally 1 tablet for 7 days,stop for 3 weeks repeat cycleNot-Taking/PRNCalcium Ciclopirox Olamine 0.77 % Cream 1 application Externally Twice a dayPaxil 20 MG Tablet 1 tablet in the morning Orally Once a dayCiclopirox Olamine 0.77% Cream external Apply to effected areas twice a dayMedication List reviewed and reconciled with the patientNot-Taking/PRN Calcium Not-Taking/PRN Ciclopirox Olamine 0.77 % Cream 1 application Externally Twice a dayNot- Taking/PRN Paxil 20 MG Tablet 1 tablet in the morning Orally Once a dayNot-Taking/PRN Ciclopirox Olamine 0.77% Cream external Apply to effected areas twice a dayMedication List reviewed and reconciled with the patient * Allergies:?N.K.D.A.yes[Aller gies Verified] Objective: * Vitals:?Ht: 5ft8in, Wt:220, BMI:33.45, Shoe size: 8.5, BP:124/80 mm Hg, Ht-cm: 172.72 cm, Wt-k.79 kg. * Examination: ???Nails: ?NAILS are:?Elongated, overgrown, dystrophic, lytic, greater than 3mm thick, discolored and friable with crumbly malodorous subungual debris, with pain on palpation , 1-5 B/L , proximal clearing of nail __25__ percent.?Dermatologic: ?SKIN FINDINGS:? Skin shows sign(s) of, erythema, scaling, in a moccasin fashion, no fissure(s) present, B/L?.?VERRUCA:?Reveals a Single , multi-loculated , mosaic-patterned, round, raised, flat-topped, petechial bleeding papule(s), with cauliflower appearance and interruption of skin lines, pain to lateral compression, and size estimated at 2 mm diameter , plantar Forefoot , LEFT.?Vascular: ?DP PULSES:?3/4, B/L.?PT PULSES:?3/4, B/L.?CAPILLARY FILL TIME:?immediate, all digits, B/L.?SKIN TEMPERTURE GRADIENT OF THE LOWER EXTERMITIES:?normal, warm to cool, proximal to distal, B/L, B/L.?TROPHIC CONDITION FOR TEXTURE/ELASTICITY/TURGOR/HAIR GROWTH:?normal, B/L.?PIGMENTATION:?normal, B/L.?EDEMA:?absent, B/L.?Neurological: ?SENSORY:?Neurological exam reveals intact sensorium, pain sensation normal, vibration sensation intact, pinprick sensation is normal in the lower extremities, Pt denies, anesthesia, burning, paresthesia, tingling, B/L.?General Examination: ?GENERAL APPEARANCE:?Reveals a pleasant, alert, well nourished, well developed, well hydrated individual, who demonstrates proper attention to hygene/body habitus, and is in no acute distress.?ORIENTED:?person, place, and time.? Assessment: * Assessment: 1.?Fungal infection of nail - B35.1 (Primary)?2.?Plantar wart - B07.0?3.?Tinea pedis of both feet - B35.3, Acute problem, Uncomplicated (3)?4.?Left foot pain - M79.672?5.?Pain in right toe(s) - M79.674?6.?Pain in left toe(s) - M79.675? Plan: * Treatment: * Procedures:?Debride Nail 6-10:?Nail debridement?Nail debridement performed extensively to reduce/remove overall nail length, girth, thickness, subungual debris, and necrotic tissue, by manual and electrical means through the use of a nail nipper and/or dremel, to more viable healthy nail plate or bed tissue 1-5. Silver nitrate used for any petechial bleeding as necessary. Patient chooses, oral Lamisil antifungal treatment, ([id number]).? * Procedure Codes:?04282 DEBRI DE NAIL, 6 OR MORE, Modifiers: XS * Preventive Medicine:? ??Counseling:?Discussion:?-13: Office or other outpatient visit for the evaluation and management of an established patient, which required a medically appropriate history and/or examination and LOW level of DECISION MAKING for: 1 STABLE ACUTE UNCOMPLICATED PROBLEM, 2 OR MORE MINOR PROBLEMS, OR 1 STABLE CHRONIC PROBLEM, THAT POSE(S) A LOW RISK FOR MORBIDITY/MORTALITY. The visit on the day of the encounter encompassed interpreting the data and educating the patient as to the nature of their condition, treatment options available according to their individual PMH, meds, allergies, and overall health/living conditions, as well as any potential risks or complications that may occur from a failure to adhere to, and participate in, the recommended course of therapy. The discussion included a complete verbal, and/or written explanation of the examination results, any x-rays taken, the proposed diagnosis, and outline of the treatment plan. A schedule for future care needs was also explained. The patient verbalized an understanding of the instructions at this time and agreed to be an active participant in their treatment. If the patient should think of any questions or concerns after the visit, I have encouraged the patient to call the office.?F/U Fungal nails:?Reviewed with the patient the time needed before we start seeing results with the oral Lamisil. Discussed the results that we hope to see and that claribel a topical medication to the nails may also help. We discussed the duration of time that the Lamisil will work on the nails for. We should wait 1 year before we take the Lamisil again., Repeat LFT ordered.? * Follow Up:?3 Months * Images: * Sign off status: Completed true * Provider:?Arleth Porras DPM Date:?12/2023 Generated for Samira weber/Kavitha/Kathryn on:?02/10/2024 10:30 AM EST History and Physical Notes * HPI (History of Present Illness) Category Sub-Category Detail Notes Category Not es Painful Nails Aggravated by: shoegear causing difficulty standing/walking Course: improved Duration: several years Nature: aching, tender, disc olored, thick Treatments: Formula 7 , Topical Antifungal , Oral Antifungal , Pulse Dose PO Antifungal Treatment-started in Feb 2023 Skin problems Pt States PCP Visit: DATE: 10/25/2023 Examination Category Sub-Category Detail Notes Category Not es Neurological SENSORY: Neurological exa m reveals intact sensorium, pain sensation normal, vibration sensation intact, pinprick sensation is normal in the lower extremities, Pt denies, anesthesia, burning, paresthesia, tingling, B/L Dermatologic SKIN FINDINGS: Skin shows sign( s) of, erythema, scaling, in a moccasin fashion, no fissure(s) present, B/L VERRUCA: Reveals a Single , m ulti-loculated , mosaic-patterned, round, raised, flat-topped, petechial bleeding papule(s), with cauliflower appearance and interruption of skin lines, pain to lateral compression, and size estimated at 2 mm diameter , plantar Forefoot , LEFT General Examination GENERAL APPEARANCE: Reveals a pleasant, alert, well nourished, well developed, well hydrated individual, who demonstrates proper attention to hygene/body habitus, and is in no acute distress ORIENTED: person, place, and t [facility] DP PULSES(B): 3/4, B/L PT PULSES(B): 3/4, B/L CAPILLARY FILL TIME: immediate, all digi ts, B/L TEMPERTURE GRADIENT(C): normal, warm to cool, proximal to distal, B/L, B/L TROPHIC CONDITION-TEXTURE/ELASTICITY/TURGOR/HAIR GROWTH(B): normal, B/L EDEMA(C): absent, B/L PIGMENTATION: normal, B/L Nails NAILS are: Elongated, overg rown, dystrophic, lytic, greater than 3mm thick, discolored and friable with crumbly malodorous subungual debris, with pain on palpation , 1-5 B/L , proximal clearing of nail __25__ percent
--- OUTSIDE RECORDS SUMMARY | 2024-02-10 10:31 | XMS_ITS ---
Author Organization Sen Fairchild MD Address [address] [place] [phone] Care Team Providers Care Fur Trapper Name Role Phone Sen Fairchild Primary Care Provider RESULTS Component Value Reference Range Notes Complete Blood Count Auto Di ff Reviewed date:10/11/2023 12:20:24 PM Interpretation: Performing Lab:[facility], [address] [place] [phone] Notes/Report: White Blood Count 6.8 4.8-10.8 X10*3/uL [...] NRBC Abs Auto 0.000 0.0-0.012 X10*3/uL Comprehensive [place]. Panel Fa st Reviewed date:10/11/2023 12:19:28 PM Interpretation: Performing Lab:[facility], [address] [place] [phone] Notes/Report: Sodium 139 135-145 mmol/L Potassium 4.2 3.3-5.1 mmol/L Chloride 106 96-108 mmol/L Carbon Dioxide 26 22-29 mmol/L Anion Gap 11 12-20 Blood Urea Nitrogen 14 9-16 mg/dL Creatinine 1.04 0.5-1.4 mg/dL Estimated Glomerular Filt Rate > 60 NOTE: For -Swiss individuals, multiply the result by 1.210. Chronic [...] (Free>4and<10) Reviewed date:10/11/2023 12:17:02 PM Interpretation: Performing Lab:[address] [phone] Notes/Report: PSA,Total (Free>4and<10) 0.42 0.00-4.00 ng/mL A [...] t Reviewed date:10/11/2023 12:22:29 PM Interpretation: Performing Lab:[address] [phone] Notes/Report: Urine, Clean Catch Color Urine Yellow Appearance Urine Clear PH 7.0 5.0-9.0 Glucose Urine UA Negative Negative mg/dL Urine Blood Negative Negative Specific [place] - Urine 1.010 1.005-1.025 Urine Protein Trace Neg-Trace mg/dL Urine Ketones Negative Negative mg/dL Nitrite Urine Negative Negative Leukocyte Esterase Urine Negative Negative RBC Urine 0-2 0-2 /HPF WBC Urine 0-5 0-5 /HPF Squamous Epithelial Cell Urine 0-2 0-2 /HPF Bacteria Urine None Seen None Seen Hyaline Casts Urine 3-5 0-2 /LPF REASON FOR VISIT yearl fasting labs MEDICATIONS Medication SIG (Take, Route, Frequency, Duration) Notes [...] Active Nitrostat 0.3 MG as directed Sublingu il for severe esophagus spasm for 30 days 11/07/2018 Not-Taking Encounters Encounter Location Date Provider Diagnosis Sen Fairchild MD [address] [place] [address] [place] [phone] 10/11/2023 Sen Fairchild Essential hypertensi on I10 ; Diverticulitis of large intestine with perforation without bleeding K57.20 and Annual physical exam Z00.00 ASSESSMENTS Encounter Date Diagnosis Assessment Notes Treatment Notes Treatment Clinical Notes 10/11/2023 Essential hypertension (ICD-10 - I10) 10/11/2023 Diverticulitis of large intestine with perforation without bleeding (ICD-10 - K57.20) 10/11/2023 Annual physical exam (ICD-10 - Z00.00) PLAN OF TREATMENT Next Appt Details Provider Name:Sen high, 10/23/2024 07:00:00 AM, [address] [place] [address], [address] [facility], [place], [place], [phone], Provider Name:Sen high, 10/30/2024 11:00:00 AM, [address] [place] [address], [address], [place], [place], [phone],
--- OUTSIDE RECORDS SUMMARY | 2024-02-10 10:31 | XMS_ITS ---
Author Organization Sen Fairchild MD Address [address] [place] [phone] Care Team Providers Care Compliance Project Manager Name Role Phone Sen Fairchild Primary Care Provider [phone] REASON FOR VISIT referral Encounters Encounter Location Date Provider Diagnosis Sen Fairchild MD [address] [place], [place] [phone] 07/23/2023 Sen Fairchild PLAN OF TREATMENT Next Appt Details Provider Name:Sen high, 10/23/2024 07:00:00 AM, [address] [facility], [address] [facility], [place], [place], [phone], Provider Name:Sen high, 10/30/2024 11:00:00 AM, [address], [address], [place], [phone],
--- OUTSIDE RECORDS SUMMARY | 2024-02-10 10:31 | XMS_ITS ---
Author Organization Sen Fairchild MD Address [address] [place] [phone] Care Team Providers Care Pershing Missile Crewmember Name Role Phone Sen Fairchild Primary Care Provider ALLERGIES Allergen (clinical drug ingredient) Drug/Non Drug Allergy documented on EMR Reaction Allergy Type Onset Date Status lisinopril Lisinopril cough Drug Allergy Activ e RESULTS Component Value Reference Range Notes Occult Blood, Stool, Guaiac Reviewed date:10/25/2023 02:44:30 PM Interpretation:Negative Performing Lab: Notes/Report: Negative Occult Blood, Stool, Guaiac Neg REASON FOR REFERRAL Reason gastroesophageal ref lux disease Weight Diagnosis [...] to capsules much cheaper, concerns abouthis hearing MEDICATIONS Medication SIG (Take, Route, Frequency, Duration) [...] as needed Orally Once a day Active SOCIAL HISTORY Tobacco Use: Social History Observation Description Date Details (start date - stop date) Never Smoker NA - NA Sex Assigned At : Social History Observation Description Sex Assigned At Unknown Tobacco Use/Smoking Question Answer Notes Patient is [...] Never (0 point) Points 1 Interpretation Negative PROBLEMS Problem Type ICD Code Onset Dates Problem Status W/U Status Risk SNOMED Code Notes Problem Gastroesophageal reflux disease without esophagitis (K21.9) Active confirmed 500468188 Problem Sensorineural hearing loss (SNHL) of both ears (H90.3) Active confirmed [id number] Problem Primary insomnia (F51.01) Active confirmed 0934363 VITAL SIGNS BMI 34.97 kg/m2 10/25/2023 Blood pressure systolic 124 mm Hg 10/25/19 24 Blood pressure diastolic 80 mm Hg 024 Height 68 in 10/25/2023 Weight 230 lbs 10/25/2023 weight is up 5 pounds since 10-24-23 Encounters Encounter Location Date Provider Diagnosis Sen Fairchild MD [address] [place] [address] [address] [place], [place] [phone] 10/25/2023 Sen Fairchild Gastroesophageal ref lux disease without esophagitis K21.9 ; Annual physical exam Z00.00 ; Sensorineural hearing loss (SNHL) of both ears H90.3 ; Essential hypertension I10 ; Primary insomnia F51.01 ; Colon cancer screening Z12.11 and Depression screening Z13.31 ASSESSMENTS Encounter Date Diagnosis Assessment Notes Treatment Notes Treatment Clinical Notes 10/25/2023 Gastroesophageal reflux disease without esophagitis (ICD-10 - K21.9) will continue current regiment 10/25/2023 Annual physical exam (ICD-10 - Z00.00) referral to argon tester 10/25/2023 Sensorineural hearin g loss (SNHL) of both ears (ICD-10 - H90.3) referral to [facility] /order for hearingtest will be faxed 10/25/2023 Essential hypertensi on (ICD-10 - I10) stable, a goal, will continue current regiment 10/25/2023 Primary insomnia (ICD-10 - F51.01) doing well, will continue current regiment 10/25/2023 Colon cancer screeni ng (ICD-10 - Z12.11) guaiac negative 10/25/2023 Depression screening (ICD-10 - Z13.31) negative screen PLAN OF TREATMENT Medication Medication Name Sig Start Date Stop [...] of both ears referral to [facility]in kenney /branden for hearingtest will be faxed Essential hypertension stable, a goal, w ill continue current regiment Primary insomnia doing well, will con tinue current regiment Colon cancer screening guaiac negative Depression screening negative screen Referrals Referral Date Details 11/25/2023 11/25/2023, gastroes ophageal reflux disease Weight, Marsha Evangelista Next Appt Details Follow Up: 1 Year, Reason: Provider Name:Sen high, 10/23/2024 07:00:00 AM, [address], [address], [place], [place], [phone], Provider Name:Sen high, 10/30/2024 11:00:00 AM, [address] [facility], [address], [place], [place], [phone], Progress Notes * Examination Category Sub-Category Detail Notes General Examination GENERAL APPEARANCE: well dev eloped, well nourished, in no acute distress HEAD: normocephalic, atrau matic EYES: pupils equal, round, reactive to light and accommodation, sclera non- icteric EARS: normal THROAT: clear NECK/THYROID: neck supple, [...] stool guaiac negative ORAL CAVITY: mucosa moist History and Physical Notes * HPI (History of Present Illness) Category Sub-Category Detail Notes Depression Screening PHQ-9 Little inte rest or [...] patient have a vision impairmen t?: Yes ?If yes, what is the vision impairment?: Glasses Does the patient have a cognition impair ment?: No Consultation Request Notes Referral Date Referring Provider Referred Provider Not bella 10/25/2023 Sen Fairchild Zoraida gastr oesophageal reflux disease Weight
--- OUTSIDE RECORDS SUMMARY | 2024-02-10 10:32 | XMS_ITS | Patient Health Record ---
Author Organization Sen Fairchild MD Address [address] [place], [place] [id number] Care Team Providers Care Representative Name Role Phone Sen Fairchild Primary Care Provider ALLERGIES Allergen (clinical drug ingredient) Drug/Non Drug Allergy documented on EMR Reaction Allergy Type Onset Date Status lisinopril Lisinopril cough Drug Allergy Activ e RESULTS Component Value Reference Range Notes Lipid Panel Reviewed date:10/11/2023 12:18:48 PM Interpretation: Performing Lab:[facility], [address] [place] [phone] Notes/Report: Triglycerides 138 <150 mg/dL Desirable Triglyceride: less than 150 mg/dL Borderline High Triglyceride 150-199 mg/dL High Triglyceride: 200-499 mg/dL Very High Triglyceride: greater than or equal to 5OO mg/dL Cholesterol 159 <200 mg/dL Desirable Cholesterol: less than 200 mg/dL Borderline High Cholesterol: 200-239 mg/dL High Cholesterol: greater than 239 mg/dL LDL Cholesterol Calculated 87 <100 mg/dL Desirable LDL: less than 100 mg/dL Near Optimal/Above Optimal LDL: 110-129 mg/dL Borderline High LDL: 130-159 mg/dL High LDL: 160-189 mg/dL Very High LDL: greater than or equal to 190 mg/dL HDL Cholesterol 45 >40 mg/dL Desirable HDL: greater than 40 mg/dL Note: This HDL assay may give artificially low results in patients with liver disease. Complete Blood Count Auto Di ff Reviewed date:10/11/2023 12:20:24 PM Interpretation: Performing Lab:[facility], [address] [place] [phone] Notes/Report: White Blood Count 6.8 4.8-10.8 X10*3/uL [...] NRBC Abs Auto 0.000 0.0-0.012 X10*3/uL Comprehensive [place]. Panel [facility] Reviewed date:10/11/2023 12:19:28 PM Interpretation: Performing Lab:[facility], [address] [place] [phone] Notes/Report: Sodium 139 135-145 mmol/L Potassium 4.2 3.3-5.1 mmol/L Chloride 106 96-108 mmol/L Carbon Dioxide 26 22-29 mmol/L Anion Gap 11 12-20 Blood Urea Nitrogen 14 9-16 mg/dL Creatinine 1.04 0.5-1.4 mg/dL Estimated Glomerular Filt Rate > 60 NOTE: For -Luxembourger individuals, multiply the result by 1.210. Chronic [...] (Free>4and<10) Reviewed date:10/11/2023 12:17:02 PM Interpretation: Performing Lab:[facility], [address] [place] [phone] Notes/Report: PSA,Total (Free>4and<10) 0.42 0.00-4.00 ng/mL A [...] t Reviewed date:10/11/2023 12:22:29 PM Interpretation: Performing Lab:[facility], [address] [place] [phone] Notes/Report: Urine, Clean Catch Color Urine Yellow Appearance Urine Clear PH 7.0 5.0-9.0 Glucose Urine UA Negative Negative mg/dL Urine Blood Negative Negative Specific [place] - Urine 1.010 1.005-1.025 Urine Protein Trace Neg-Trace mg/dL Urine Ketones Negative Negative mg/dL Nitrite Urine Negative Negative Leukocyte Esterase Urine Negative Negative RBC Urine 0-2 0-2 /HPF WBC Urine 0-5 0-5 /HPF Squamous Epithelial Cell Urine 0-2 0-2 /HPF Bacteria Urine None Seen None Seen Hyaline Casts Urine 3-5 0-2 /LPF Occult Blood, Stool, Guaiac Reviewed date:10/25/2023 02:44:30 [...] Referral Priority Routine Referral Appointment Date 11/25/2023 MEDICATIONS Medication SIG (Take, Route, Frequency, Duration) Notes Start Date End Date Status Nitrostat 0.3 MG as directed [place] al for severe esophagus spasm for 30 days 11/07/2018 Not-Taking Omeprazole 20 MG 1 capsule 30 minutes before morning meal Orally Once a day for 90 days 10/25/2023 Active Valsartan-hydroCHLOROthi azide 80-12.5 MG TAKE 1 TABLET BY MOUTH EVERY DAY Active traZODone HCl 50 MG 1 tablet at bedtime as needed Orally Once a day Active Ibuprofen 800 MG TAKE 1 TABLET BY SUNDAY TH THREE TIMES A DAY for 30 Active Paxil 10 MG TAKE 1 TABLET BY SUNDAY TH IN THE MORNING for 60 Not-Taking IMMUNIZATIONS Vaccine Route Administration Date Status Comme nts Fluarix Quadrivalent IM Intramuscular 01/21/2018 Administe red Fluarix Quadrivalent IM Intramuscular 05/05/2019 Administe red Fluarix Quadrivalent IM Intramuscular 11/27/2019 Administe red Covid Vaccine Unknown 06/30/2020 Administered Moderna C VS SARS-COV-2 Moderna Unknown 07/21/2020 Administered PPSV23 (Pnemovax) IM Intramuscular 09/27/2020 Administered SARS-COV-2 Moderna Unknown 02/04/2021 Administered Shingrix Unknown 06/21/2023 Administered [facility] Flu Vaccine Unknown 01/10/2015 Refused Fluarix Quadrivalent Unknown 01/21/2017 Refused Fluarix Quadrivalent Unknown 04/17/2022 Refused SOCIAL HISTORY Tobacco Use: Social History Observation [...] W/U Status Risk SNOMED Code Notes Problem Insomnia (780.52) Active confirmed Inso mnia (046163443) Problem Primary insomnia (F51.01) Active confirmed 6481709 Problem Gastroesophageal reflux disease without esophagitis (K21.9) Active confirmed 272724917 Problem Essential hypertension (I10) Active confirmed 45379795 Problem Cervical neuropathy (G54.2) Active confirmed 6622057718810 Problem Diverticulitis of large intestine with perforation without bleeding (K57.20) Active confirmed 4503886 Problem Schatzki's ring (K22.2) Active confirmed 356310892 Problem Sleep disorder (G47.9) Active confirmed 97117287 Problem TRAM (obstructive sleep apnea) (G47.33) Active confirmed 70633700 Problem BMI 34.0-34.9,adult (Z68.34) Active confirmed 009278320 Problem Neck arthritis (M46.92) Active confirmed 964680537 Problem Sensorineural hearing loss (SNHL) of both ears (H90.3) Active confirmed 318888164 VITAL SIGNS Blood pressure diastolic 80 mm Hg 10/25/2023 berta ght is up 5 pounds since 10-24-23 Height 68 in 10/25/2023 weight is up 5 pounds since 10-24-23 Blood pressure systolic 124 mm Hg 10/25/2023 weig ht is up 5 pounds since 10-24-23 Weight 230 lbs 10/25/2023 weight is up 5 pounds since 10-24-23 BMI 34.97 kg/m2 10/25/2023 weight is up 5 pounds since 10-24-23 Encounters Encounter Location Date Provider Diagnosis Sen Fairchild MD [address] [place] [phone] 10/25/2023 Sen Fairchild Gastroesophageal ref lux disease without esophagitis K21.9 ; Annual physical exam Z00.00 ; Sensorineural hearing loss (SNHL) of both ears H90.3 ; Essential hypertension I10 ; Primary insomnia F51.01 ; Colon cancer screening Z12.11 and Depression screening Z13.31 Sen Fairchild MD [address] [place] [phone] 10/11/2023 Sen Fairchild Essential hypertensi on I10 ; Diverticulitis of large intestine with perforation without bleeding K57.20 and Annual physical exam Z00.00 Sen Fairchild MD [address] [place] [phone] 04/26/2023 Sen Fairchild Essential hypertensi on I10 and Cervical neuropathy G54.2 Sen Fairchild MD [address] [place] [id number] 03/08/2023 Sen Fairchild MD [address] [place] [phone] 05/16/2023 Sen Fairchild Neck arthritis 721.0 Sen Fairchild MD [address] [place] [address] Drive [address] [place], [place] [phone] 07/23/2023 Sen Fairchild ASSESSMENTS Encounter Date Diagnosis Assessment Notes Treatment Notes Treatment Clinical Notes 10/25/2023 Annual physical exam (ICD-10 - Z00.00) referral to thermodynamics teacher 10/25/2023 Gastroesophageal reflux disease without esophagitis (ICD-10 - K21.9) will continue current regiment 10/11/2023 Essential hypertensi on (ICD-10 - I10) 10/11/2023 Diverticulitis of large intestine with perforation without bleeding (ICD-10 - K57.20) 04/26/2023 Essential hypertensi on (ICD-10 - I10) doing well, will continue current regiment 04/26/2023 Cervical neuropathy (ICD-10 - G54.2) has been getting worse now for 10 days. he is using heat on it and just received a massage band but has not tried it yet. goes for massage 05/16/2023 Neck arthritis (ICD9-CM - 721.0) 10/25/2023 Sensorineural hearin g loss (SNHL) of both ears (ICD-10 - H90.3) referral to Dustin kenney /order for hearingtest will be faxed 10/11/2023 Annual physical exam (ICD-10 - Z00.00) 10/25/2023 Essential hypertensi on (ICD-10 - I10) stable, a goal, will continue current regiment 10/25/2023 Primary insomnia (ICD-10 - F51.01) doing well, will continue current regiment 10/25/2023 Colon cancer screeni ng (ICD-10 - Z12.11) guaiac negative 10/25/2023 Depression screening (ICD-10 - Z13.31) negative screen PLAN OF TREATMENT Next Appt Details Provider Name:Sen high, 10/23/2024 07:00:00 AM, [address] [facility], [address], [place], [place], [phone], Provider Name:Sen high, 10/30/2024 11:00:00 AM, [address], [address], [place], [place], [phone], Insurance Providers Payer Name Payer Address Payer Phone Subscriber Number Group Number Insured Name Patient Relationship to Insured Coverage Start Date Coverage End Date [employer] [address] [place], [place] [phone] [id number] Nathan Herman Self - patient is the insured MEDICAL (GENERAL) HISTORY Medical History History ICD Code Had an elevated blood sugar by home test that he did not know how to do. when tested here was normal discussed need for colonosco py at 47 and he wants to wait until. colonoscopy 07/10/22 repeat 5y Surgical History Surgery Date(Month/Year) Repair of Umbilical Hernia w/o Mesh (Dr. Ledesma) 03/2018
[2024-02-10 10:39] VITALS: BMI 35.4
--- NOTE | 2024-02-10 10:39 | MHC.AMNUTRGE ---
VS Expanded 02/10/24 10:39 Height 5 ft 8 in Weight 232 lb 12.93 oz BMI 35.4 Intake Visit Reasons: GERD/Left vm Allergies lisinopril Allergy (Verified 09/25/22 15:30) Cough Nutrition Presentation Details: Pt presents for MNT ff/u for obesity Pt reports incorporating fish and poultry more frequently and reducing on red meats BS Monitoring Most Recent Diabetes Results: Cholesterol 159 mg/dL (<200) 10/11/23 HDL Cholesterol 45 mg/dL (>40) 10/11/23 Triglycerides 138 mg/dL (<150) 10/11/23 Creatinine 1.04 mg/dL (0.5-1.4) 10/11/23 Blood Urea Nitrogen 14 mg/dL (9-16) 10/11/23 Sodium 139 mmol/L (135-145) 10/11/23 Potassium 4.2 mmol/L (3.3-5.1) 10/11/23 Chloride 106 mmol/L (96-108) 10/11/23 Carbon Dioxide 26 mmol/L (22-29) 10/11/23 Calcium 9.3 mg/dL (8.4-10.2) 10/11/23 AST 21 U/L (5-37) 10/11/23 ALT 29 U/L (0-40) 10/11/23 Total Protein 7.0 g/dL (6.5-8.0) 10/11/23 Albumin 4.2 g/dL (3.5-5.0) 10/11/23 [facility] Medical History HTN (hypertension) TRAM (obstructive sleep apnea) Pre-diabetes Schatzki's ring Surgical History History of esophagogastroduodenoscopy (EGD) History of umbilical hernia repair (04/10/18) History of vasectomy (2009) Hx of colonoscopy Family History Father HTN (hypertension) Social History Household Members: Family Alcohol intake: never Patient Tobacco Use Status: Never used Tobacco Current occupational status: employed 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 Assessment & Plan Assessment & Plan (1) Obesity (BMI 30-39.9): Comment: Pt also has GERD Code(s): E66.9 - Obesity, unspecified Category: Medical Plan: Wt:104 Kg ( 11/18 ) Est kcal needs as per MSJ: 2600 (40% carb, 30% protein/fat) Est fluid needs as per 25-30 ml/d: 3100 Est prot per day as per 1 g/kg bw: 104 Recommend fiber intake : 8-10 g per day and gradually increase to 25-28 g per day for women and 35-38 g for men or as tolerated Recommend sodium intake per day : less than 2300 mg Educated patient on: ( R = reviewed V = verbalizes understanding N/R = needs review N/A = not applicable Food sources of carbohydrate, adequate serving sizes and its role in various health conditions: R V N/R Differences between complex carbohydrates a simple carbohydrates, role of fiber in diet: R V N/R Lean protein sources of foods: R V NR Differences between types of fats and role in diet (mono on saturated fat fatty acids, saturated fatty acids, trans fats): R basic Food sources of sodium in salt and healthy modifications for heart health in kidney health: R V R/V Vitamins and minerals: R V N/R Healthy plate method concept: R Physical activity: Benefits a precaution: R V ETOH and its calorie contribution: R Patient Instructions: take 3 day average of total caloric intake and Work on reducing calories by 500 . (example if 3 day average is 3000 then work on reducing total calories to 2500 in a consistent manner) Drink water with meal and sacks Coding Level of Care Code Nutr Indiv Subseq (06280) Diagnoses Obesity (BMI 30-39.9) E66.9 Time Spent (min) 30
== END 2024-02-10 10:59 | disposition home or self-care (01) ==
PROVIDERS: PCP Internal Medicine; Visit Provider Dietitian, Registered
DX: E66.9 Obesity, unspecified (principal)

== ENCOUNTER 2025-01-15 10:10 | Outpatient (REF) | payer BC, SELFPAY ==
--- OUTSIDE RECORDS SUMMARY | 2023-07-23 08:59 | XMS_ITS ---
Author Organization Sen Fairchild MD Address [address] [place] [phone] Care Team Providers Care Eyeletter Name Role Phone Sen Fairchild Primary Care Provider REASON FOR VISIT referral Encounters Encounter Location Date Provider Diagnosis Sen Fairchild MD [address] [facility] [address] [place], [place] [phone] 07/23/2023 Sen Fairchild Plan Of Treatment Next Appt Details Provider Name:Sen Gamboa ier, 01/29/2025 10:00:00 AM, [address] [facility], [address] [facility], [place], [place], [phone], Progress Notes * Herman EVANS KDOB: 3 (52 yo M)Acc No.[id number]:07/23/2023 Patient: Herman Goel :1970 A ge:52 Y S ex:Male Address:[address] [place] [address] [facility] [place] [address] * true * Date: Generated for Samira weber/Kavitha/Coralitting on: 03/17/2024 10:46 AM EST
--- OUTSIDE RECORDS SUMMARY | 2023-10-11 03:00 | XMS_ITS ---
Author Organization Sen Fairchild MD Address [address] [place] [phone] Care Team Providers Care Millinery Department Manager Name Role Phone Sen Fairchild Primary Care Provider Results Component Value Reference Range Notes Complete Blood Count Auto Di ff Reviewed date:10/11/2023 12:20:24 PM Interpretation: Performing Lab:[facility], [address] [place] [phone] Notes/Report: White Blood Count 6.8 4.8-10.8 X10*3/uL Red Blood Count 4.84 4.60-5.80 X10*6/uL Hemoglobin 14.6 14.0-18.0 g/dl Hematocrit 42.3 42.0-52.0 % Mean Corpuscular Volume 87.4 80.0-98.0 fL Mean Corpuscular Hemoglobin 30.2 27.0-33.0 pg Mean Corpuscular HGB Conc 34.5 31.0-36.0 g/dl Red Cell Distribution Width 12.8 11.0-16.0 % Platelet Count 221 160-400 X10*3/uL Mean Platelet Volume 10.3 9.4-12.4 fL Neutrophils Percent Auto 62.8 45-73 % Imm Gran Pct Auto 0.9 0.0-0.4 % Lymphocytes Percent Auto 23.0 20-40 % Monocytes Percent Auto 10.1 2-11 % Eosinophils Percent Auto 2.2 0-4 % Basophils Percent Auto 1.0 0-2 % NRBC Pct Auto 0.0 0.0-0.2 /100WBC Neutrophils Absolute Auto 4.3 2.0-8.3 x10*3/u L Imm Gran Abs Auto 0.06 0.00-0.03 X10*3/uL Lymphocytes Absolute Auto 1.6 1.2-4.9 X10*3/u L Monocytes Absolute Auto 0.7 0.1-1.2 X10*3/uL Eosinophils Absolute Auto 0.2 0.0-0.4 X10*3/u L Basophils Absolute Auto 0.1 0.0-0.2 X10*3/uL NRBC Abs Auto 0.000 0.0-0.012 X10*3/uL Comprehensive [place]. Panel Fa st Reviewed date:10/11/2023 12:19:28 PM Interpretation: Performing Lab:[facility], [address] [place] [phone] Notes/Report: Sodium 139 135-145 mmol/L Potassium 4.2 3.3-5.1 mmol/L Chloride 106 96-108 mmol/L Carbon Dioxide 26 22-29 mmol/L Anion Gap 11 12-20 Blood Urea Nitrogen 14 9-16 mg/dL Creatinine 1.04 0.5-1.4 mg/dL Estimated Glomerular Filt Rate > 60 NOTE: For -[place] individuals, multiply the result by 1.210. Chronic Kidney Disease: Estimated GFR < 60 mL/min/1.73m2 Severe Kidney Disease: Estimated GFR < 15 mL/min/1.73m2 Glucose Fasting 98 60-99 mg/dL Calcium 9.3 8.4-10.2 mg/dL Bilirubin Total 0.6 0.0-1.0 mg/dL Aspartate Amino Transferase 21 5-37 U/L Alanine Aminotransferase 29 0-40 U/L Total Protein 7.0 6.5-8.0 g/dL Albumin Level 4.2 3.5-5.0 g/dL Alkaline Phosphatase 61 39-117 U/L PSA,Total (Free>4and<10) Reviewed date:10/11/2023 12:17:02 PM Interpretation: Performing Lab:[address] [phone] Notes/Report: PSA,Total (Free>4and<10) 0.42 0.00-4.00 ng/mL A Free PSA was not performed: The percentage of Free PSA can be used to enhance the differentiation of prostate cancer from benign prostatic disease in subjects whose PSA levels are between 4.0 and 10.0 ng/mL. For subjects whose PSA levels are below 4.0 or above 10.0 ng/mL, the risk of prostate cancer is determined on the basis of the PSA alone. Therefore the % Free PSA is recommended only for those subjects whose PSA levels are between 4.0 and 10.0 ng/mL. PSA methodology: Nolan Alinity i Chemiluminescent Microparticle Immunoassay (CMIA) UA ClnCatch+Micro w/rflx Cul t Reviewed date:10/11/2023 12:22:29 PM Interpretation: Performing Lab:[address] [phone] Notes/Report: Urine, Clean Catch Color Urine Yellow Appearance Urine Clear PH 7.0 5.0-9.0 Glucose Urine UA Negative Negative mg/dL Urine Blood Negative Negative Specific [place] - Urine 1.010 1.005-1.025 Urine Protein Trace Neg-Trace mg/dL Urine Ketones Negative Negative mg/dL Nitrite Urine Negative Negative Leukocyte Esterase Urine Negative Negative RBC Urine 0-2 0-2 /HPF WBC Urine 0-5 0-5 /HPF Squamous Epithelial Cell Urine 0-2 0-2 /HPF Bacteria Urine None Seen None Seen Hyaline Casts Urine 3-5 0-2 /LPF REASON FOR VISIT yearl fasting labs Medications Medication SIG (Take, Route, Frequency, Duration) Notes Start Date End Date Status Valsartan-hydroCHLOROthi azide 80-12.5 MG TAKE 1 TABLET BY MOUTH EVERY DAY for 90 Active Ibuprofen 800 MG TAKE 1 TABLET BY SUNDAY TH THREE TIMES A DAY FOR 30 DAYS for 30 Active Omeprazole 20 MG TAKE 1 TABLET BY SUNDAY TH EVERY DAY 30 MINUTES BEFORE MORNING MEAL FOR 30 DAYS for 90 Active Paxil 10 MG TAKE 1 TABLET BY SUNDAY TH IN THE MORNING for 60 Not-Taking traZODone HCl 50 MG 1 tablet at bedtime as needed Orally Once a day for 30 day(s) Active Nitrostat 0.3 MG as directed Sublingu al for severe esophagus spasm for 30 days 11/07/2018 Not-Taking Encounters Encounter Location Date Provider Diagnosis Sen Fairchild MD [address] [facility] [address] [place], [place] [phone] 10/11/2023 Sen Fairchild Essential hypertensi on I10 ; Diverticulitis of large intestine with perforation without bleeding K57.20 and Annual physical exam Z00.00 Assessments Encounter Date Diagnosis (ICD Code) Assessment Notes Treatment Notes Treatment Clinical Notes Section Notes 10/11/2023 Essential hypertension (ICD-10 - I10) 10/11/2023 Diverticulitis of large intestine with perforation without bleeding (ICD-10 - K57.20) 10/11/2023 Annual physical exam (ICD-10 - Z00.00) Plan Of Treatment Next Appt Details Provider Name:Sen Gamboa ier, 01/29/2025 10:00:00 AM, [address] [place] [address], [address], [place], [place], [phone], Progress Notes * Zacarias EVANS KDOB: 3 (54 yo M)Acc No.[id number]:10/11/2023 Progress Note Patient: Emiliano HANSAZacarias Provider: Dexter Fairchild MD :1970 A ge:52 Y S ex:Male Date:10/11/2023 Address:[address] [facility] [id number] Subjective: * Chief Complaints: * 1 . Yearl fasting labs. * Medical History: * Medications: T aking traZODone HCl 50 MG Tablet 1 tablet at bedtime as needed Orally Once a day , Taking Omeprazole 20 MG Tablet Delayed Release TAKE 1 TABLET BY MOUTH EVERY DAY 30 MINUTES BEFORE MORNING MEAL FOR 30 DAYS , Taking Ibuprofen 800 MG Tablet TAKE 1 TABLET BY MOUTH THREE TIMES A DAY FOR 30 DAYS , Taking Valsartan- hydroCHLOROthiazide 80-12.5 MG Tablet TAKE 1 TABLET BY MOUTH EVERY DAY , Not-Taking/PRN Paxil 10 MG Tablet TAKE 1 TABLET BY MOUTH IN THE MORNING , Not-Taking/PRN Nitrostat 0.3 MG Tablet Sublingual as directed Sublingual for severe esophagus spasm Objective: * Vitals: Assessment: * Assessment: 1. E ssential hypertension - I10 (Primary) 2 . D iverticulitis of large intestine with perforation without bleeding - K57.20 3 . A nnual physical exam - Z00.00 Plan: * Treatment: 2. D iverticulitis of large intestine with perforation without bleeding L AB: LIPID PANEL (Order Cancelled) L AB: Complete Blood Count Auto Diff (Collection Date & Time - 10/11/2023 08:00 AM) L AB: Comprehensive [place]. Panel Fast (Collection Date & Time - 10/11/2023 08:00 AM) L AB: PSA,Total (Free>4and<10) (Collection Date & Time - 10/11/2023 08:00 AM) L AB: UA ClnCatch+Micro w/rflx Cult (Collection Date & Time - 10/11/2023 08:00 AM) 3. A nnual physical exam L AB: LIPID PANEL (Order Cancelled) L AB: Complete Blood Count Auto Diff (Collection Date & Time - 10/11/2023 08:00 AM) L AB: Comprehensive [place]. Panel Fast (Collection Date & Time - 10/11/2023 08:00 AM) L AB: PSA,Total (Free>4and<10) (Collection Date & Time - 10/11/2023 08:00 AM) L AB: UA ClnCatch+Micro w/rflx Cult (Collection Date & Time - 10/11/2023 08:00 AM) * Procedure Codes: 3 6415 VENIPUNCT, ROUTINE* * * The named appointment provid er may or may not be the originator of this progress note, and it is not deemed complete until electronically signed by the appointment provider. Sign off status: Pending * Provider: Dexter Fairchild MD Date: 0 10/11/2023 Generated for Samira weber/Kavitha/Coralitting on: 1 03/17/2024 10:45 AM EST
--- OUTSIDE RECORDS SUMMARY | 2023-10-18 04:15 | XMS_ITS ---
Author Organization [facility] Address [address] [place] [address] Care Team Providers Care Lacquer Coater Name Role Phone Sen Fairchild MD Primary Care Provider Arleth Santillan [phone] Encounters Encounter Location Date Provider Diagnosis [address] [phone] 10/18/2023 Arleth Porras Plan Of Treatment Next Appt Details Provider Name:Arleth merlos, 03/05/2025 09:00:00 AM, [address] [place] [address], [phone], Progress Notes * Zacarias EVANS KDOB: 3 (54 yo M)Acc No.[id number]:10/18/2023 Progress Note Patient: Zacarias MEDINA Provider: Xuan Porras DPM :1970 A ge:52 Y S ex:Male Date:10/18/2023 Address:[address] [place] [phone] Pcp:Sen Fairchild MD Subjective: * Chief Complaints: * * Medical History: Objective: * Vitals: Assessment: Plan: * Treatment: * Images: * The named appointment provid er may or may not be the originator of this progress note, and it is not deemed complete until electronically signed by the appointment provider. Sign off status: Pending * Provider: Xuan Porras DPM Date: 0 10/18/2023 Generated for Samira weber/Kavitha/Kathryn on: 1 03/17/2024 10:46 AM EST
--- OUTSIDE RECORDS SUMMARY | 2023-10-25 06:00 | XMS_ITS ---
Author Organization Sen Fairchild MD Address [address] [place] [phone] Care Team Providers Care Non Destructive Evaluation Manager Name Role Phone Sen Fairchild Primary Care Provider [phone] Allergies Allergen (clinical drug ingredient) Drug/Non Drug Allergy documented on EMR Reaction Allergy Type Onset Date Status lisinopril Lisinopril cough Drug Allergy Activ e Results Component Value Reference Range Notes Occult Blood, Stool, Guaiac Reviewed date:10/25/2023 02:44:30 PM Interpretation:Negative Performing Lab: Notes/Report: Negative Occult Blood, Stool, Guaiac Neg Reason For Referral Reason gastroesophageal ref lux disease Weight Diagnosis 1 Gastroesophageal ref lux disease without esophagitis (K21.9) Referral Organization Sen Fairchild MD Referring Provider First Name Sen Referring Provider Last Name Devorah Referring Provider Speciality Internal M edicine Referred Provider Marsha Naidu Referred Provider Specialty Nutrition General Notes Emerald Bravo 01:03:09 PM EDT > info faxed , Emerald Bravo 11/01/2023 10:43:29 AM EDT > was told by office patient is aware of appt Referral Priority Routine Referral Appointment Date 11/25/2023 REASON FOR VISIT annual visit, would like to switch Omeprazole from tablets to capsules much cheaper, concerns abouthis hearing Medications Medication SIG (Take, Route, Frequency, Duration) Notes Start Date End Date Status Omeprazole 20 MG 1 capsule 30 minutes before morning meal Orally Once a day for 90 days 10/25/2023 Active Valsartan-hydroCHLOROthi azide 80-12.5 MG TAKE 1 TABLET BY MOUTH EVERY DAY Active Ibuprofen 800 MG TAKE 1 TABLET BY SUNDAY TH THREE TIMES A DAY FOR 30 DAYS for 30 Active Paxil 10 MG TAKE 1 TABLET BY SUNDAY TH IN THE MORNING for 60 Not-Taking Nitrostat 0.3 MG as directed Sublingu al for severe esophagus spasm for 30 days 11/07/2018 Not-Taking traZODone HCl 50 MG 1 tablet at bedtime as needed Orally Once a day Active Social History Tobacco Use: Social History Observation Description Date Details (start date - stop date) Never Smoker NA - NA Tobacco Use/Smoking Question Answer Notes Patient is a nonsmoker Additional Findings: Tobacco Non-User Cu rrent non-smoker, currently using no form of tobacco Alcohol Screen Question Answer Notes Did you have a drink contain ing alcohol in the past year? Yes How often did you have a dri nk containing alcohol in the past year? Monthly or less (1 point) How many drinks did you have on a typical day when you were drinking in the past year? 1 or 2 drinks (0 point) How often did you have 6 or more drinks on one occasion in the past year? Never (0 point) Points 1 Interpretation Negative Problems Problem Type SNOMED Code ICD Code Onset Dates Problem Status W/U Status Risk Notes Problem [id number] Gastroesophageal reflux disease without esophagitis (K21.9) Active confirmed Problem 766431084 Sensorineural hearing loss (SNHL) of both ears (H90.3) Active confirmed Problem 8341849 Primary insomnia (F51.01) Active confirmed Vital Signs Blood pressure systolic 124 mm Hg 10/25/19 24 Blood pressure diastolic 80 mm Hg 024 Height 68 in 10/25/2023 Weight 230 lbs 10/25/2023 BMI 34.97 kg/m2 10/25/2023 weight is up 5 pounds since 10-24-23 Encounters Encounter Location Date Provider Diagnosis Sen Fairchild MD [address] [place] [address] [address] [place], [place] [phone] 10/25/2023 Sen Fairchild Gastroesophageal ref lux disease without esophagitis K21.9 ; Annual physical exam Z00.00 ; Sensorineural hearing loss (SNHL) of both ears H90.3 ; Essential hypertension I10 ; Primary insomnia F51.01 ; Colon cancer screening Z12.11 and Depression screening Z13.31 Assessments Encounter Date Diagnosis (ICD Code) Assessment Notes Treatment Notes Treatment Clinical Notes Section Notes 10/25/2023 Gastroesophageal reflux disease without esophagitis (ICD-10 - K21.9) will continue current regiment 10/25/2023 Annual physical exam (ICD-10 - Z00.00) 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 to auto 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 10/25/2023 Sensorineural hearing loss (SNHL) of both ears (ICD-10 - H90.3) referral to [facility] for hearingtest will be faxed 10/25/2023 Essential hypertension (ICD-10 - I10) stable, a goal, will continue current regiment 10/25/2023 Primary insomnia (ICD-10 - F51.01) doing well, will continue current regiment 10/25/2023 Colon cancer screening (ICD-10 - Z12.11) guaiac negative 10/25/2023 Depression screening (ICD-10 - Z13.31) negative screen Plan Of Treatment Medication Medication Name Sig Start Date Stop Date Notes Omeprazole 20 MG 1 capsule 30 minutes before morning meal Orally Once a day for 90 days 10/25/2023 Valsartan-hydroCHLOROthiazid e 80-12.5 MG TAKE 1 TABLET BY MOUTH EVERY DAY Omeprazole 20 MG TAKE 1 TABLET BY SUNDAY TH EVERY DAY 30 MINUTES BEFORE MORNING MEAL FOR 30 DAYS traZODone HCl 50 MG 1 tablet at bedtime as needed Orally Once a day Treatment Notes Assessment Notes Gastroesophageal reflux dise ase without esophagitis will continue current regiment Annual physical exam referral to dietici an Sensorineural hearing loss ( SNHL) of both ears referral to [facility] for hearingtest will be faxed Essential hypertension stable, a goal, w ill continue current regiment Primary insomnia doing well, will con tinue current regiment Colon cancer screening guaiac negative Depression screening negative screen Referrals Referral Date Details 10/25/2023 10/25/2023, gastroes ophageal reflux disease Weight, Marsha Naidu Next Appt Details Follow Up: 1 Year, Reason: Provider Name:Sen Gamboa ier, 01/29/2025 10:00:00 AM, [address] [place] [address], [address], [place], [place], [phone], Progress Notes * Herman EVANS KDOB: [birth year] (52 yo M)Acc No.[id number]:10/25/2023 Progress Notes Patient: Herman Goel Provider: Dexter Fairchild MD :1970 A ge:52 Y S ex:Male Date:10/25/2023 Address:[address] [place] [address] Subjective: * Chief Complaints: * A nnual visitwould like to switch Omeprazole from tablets to capsules much cheaperConcerns about his hearing * HPI: D epression Screening: PHQ-9 L ittle interest or pleasure in doing things N ot at all, F eeling down, depressed, or hopeless N ot at all, T rouble falling or staying asleep, or sleeping too much N ot at all, F eeling tired or having little energy N ot at all, P oor appetite or overeating N ot at all, F eeling bad about yourself or that you are a failure, or have let yourself or your family down N ot at all, T rouble concentrating on things, such as reading the newspaper or watching television N ot at all, M oving or speaking so slowly that other people could have noticed; or the opposite, being so fidgety or restless that you have been moving around a lot more than usual N ot at all, T houghts that you would be better off or of hurting yourself in some way N ot at all, T otal Score 0 . I nterpretation and Intervention D epression Screening Findings N egative, F ollow-Up for Depression : review of PHQ-9 found negative result, no follow-up needed. C ommunication Needs: Communication Needs D oes the patient have a hearing impairment N o, D oes the patient have a vision impairment? Y es, I f yes, what is the vision impairment? G lasses, D oes the patient have a cognition impairment? N o. S POLI Questions: SDOH Questions I n the past year have you been worried about losing housing? N o, I n the past year have you or any family members you live with been unable to get any of the following when it was really needed? Check all that apply: N one. S ymptom(s): patient is a 52 yo male here for annual visit with review of recent labs and follow up of chronic issues, having trouble hearing. * ROS: G eneral/Constitutional: Patient denies c hills , fatigue , fever , headache. C hange in appetite d enies. C hills d enies. F ever d enies. O phthalmologic: Blurred vision d enies. D ischarge d enies. P ain d enies. E NT: Patient denies d ecreased sense of smell , any loss of taste , sore throat. D ecreased hearing d enies. S ore throat d enies. S wollen glands d enies. E ndocrine: Cold intolerance d enies. E xcessive thirst d enies. H eat intolerance d enies. W eight loss d enies. R espiratory: Cough d enies. S hortness of breath at rest d enies. S hortness of breath with exertion d enies. W heezing d enies. C ardiovascular: Chest pain at rest d enies. C hest pain with exertion?denies. I rregular heartbeat d enies. S hortness of breath d enies. ? G astrointestinal: Abdominal pain d enies. C hange in bowel habits d enies. D iarrhea d enies. N ausea d enies. R ectal bleeding d enies. V omiting d enies . G enitourinary: Blood in urine d enies. D ifficulty urinating d enies. F requent urination d enies. M usculoskeletal: Patient denies m uscle aches. P ainful joints d enies. W eakness d enies. P eripheral Vascular: Patient denies r ed and blue toes. S kin: Dry skin d enies. I tching d enies. D enies?Mole(s), changes in moles, new moles or any lesions of concern. D enies P hotosensitivity. R primo d enies. N eurologic: Dizziness d enies. F ainting d enies. H eadache?denies. * Medical History: * Surgical History: * Hospitalization/Major Diagno stic Procedure: * Family History: F ather: alive 72 yrs, diagnosed with Diabetes, Hypertension. M other: alive 70 yrs. 3 sister(s) . 2 daughter(s) . . Mother-Healthy No family history of drug or mental illness, Denies mental health/substance abuse family history, Denies mental health/substance abuse family history, Denies mental health/substance abuse family history, Denies mental health/substance abuse family history. * Social History: T obacco Use: T obacco Use/Smoking P atient is a n onsmoker, A dditional Findings: Tobacco Non-User C urrent non-smoker, currently using no form of tobacco. D rugs/Alcohol: A lcohol Screen D id you have a drink containing alcohol in the past year? Y es, H ow often did you have a drink containing alcohol in the past year? M onthly or less (1 point), H ow many drinks did you have on a typical day when you were drinking in the past year? 1 or 2 drinks (0 point), H ow often did you have 6 or more drinks on one occasion in the past year? N ever (0 point), P oints 1 , I nterpretation N egative. M iscellaneous: C affeine: yes, frequency:, 1-2 cups per day. Children: yes. Community involvements: yes. Exercise: yes, 4-5 times per week spinning and weights. Home smoke detector use: yes. Housing: owning. Living with: spouse. Marital status: . Occupation: works full-time. Pets: none. no Travel outside of the [place]. * Medications: T akingtraZODone HCl 50 MG Tablet 1 tablet at bedtime as needed Orally Once a dayOmeprazole 20 MG Tablet Delayed Release TAKE 1 TABLET BY MOUTH EVERY DAY 30 MINUTES BEFORE MORNING MEAL FOR 30 DAYS Ibuprofen 800 MG Tablet TAKE 1 TABLET BY MOUTH THREE TIMES A DAY FOR 30 DAYS Valsartan-hydroCHLOROthiazide 80-12.5 MG Tablet TAKE 1 TABLET BY MOUTH EVERY DAY Taking traZODone HCl 50 MG Tablet 1 tablet at bedtime as needed Orally Once a dayTaking Omeprazole 20 MG Tablet Delayed Release TAKE 1 TABLET BY MOUTH EVERY DAY 30 MINUTES BEFORE MORNING MEAL FOR 30 DAYS Taking Ibuprofen 800 MG Tablet TAKE 1 TABLET BY MOUTH THREE TIMES A DAY FOR 30 DAYS Taking Valsartan-hydroCHLOROthiazide 80-12.5 MG Tablet TAKE 1 TABLET BY MOUTH EVERY DAY Not-Taking/PRNPaxil 10 MG Tablet TAKE 1 TABLET BY MOUTH IN THE MORNING Nitrostat 0.3 MG Tablet Sublingual as directed Sublingual for severe esophagus spasmMedication List reviewed and reconciled with the patientNot-Taking/PRN Paxil 10 MG Tablet TAKE 1 TABLET BY MOUTH IN THE MORNING Not-Taking/PRN Nitrostat 0.3 MG Tablet Sublingual as directed Sublingual for severe esophagus spasmMedication List reviewed and reconciled with the patient * Allergies: L isinopril: zoë[Allergies Verified] Objective: * Vitals: H t: 68, Wt:230, BMI:34.97, BP:124/80 weight is up 5 pounds since 10-24-23. * P ast Orders: L ab:UA ClnCatch+Micro w/rflx Cult (Order Date - 10/11/2023) (Collection Date - 10/11/2023) Value Reference Range Color Urine Yellow - Appearance Urine Clear - PH 7.0 5.0-9.0 - Glucose Urine UA Negative Negative - mg/dL Urine Blood Negative Negative - Specific [place] - Urine 1.010 1.005-1.025 - Urine Protein Trace Neg-Trace - mg/dL Urine Ketones Negative Negative - mg/dL Nitrite Urine Negative Negative - Leukocyte Esterase Urine Negative Negative - RBC Urine 0-2 0-2 - /HPF WBC Urine 0-5 0-5 - /HPF Squamous Epithelial Cell Urine 0-2 0-2 - /HP F Bacteria Urine None Seen None Seen - Hyaline Casts Urine 3-5 0-2 - /LPF L ab:Lipid Panel (Order Date - 10/11/2023) (Collection Date - 10/11/2023) Value Reference Range Triglycerides 138 <150 - mg/dL Cholesterol 159 <200 - mg/dL LDL Cholesterol Calculated 87 <100 - mg/dL HDL Cholesterol 45 >40 - mg/dL L ab:Complete Blood Count Auto Diff (Order Date - 10/11/2023) (Collection Date - 10/11/2023) Value Reference Range White Blood Count 6.8 4.8-10.8 - X10*3/uL Red Blood Count 4.84 4.60-5.80 - X10*6/uL Hemoglobin 14.6 14.0-18.0 - g/dl Hematocrit 42.3 42.0-52.0 - % Mean Corpuscular Volume 87.4 80.0-98.0 - fL Mean Corpuscular Hemoglobin 30.2 27.0-33.0 - pg Mean Corpuscular HGB Conc 34.5 31.0-36.0 - g/ dl Red Cell Distribution Width 12.8 11.0-16.0 - % Platelet Count 221 160-400 - X10*3/uL Mean Platelet Volume 10.3 9.4-12.4 - fL Neutrophils Percent Auto 62.8 45-73 - % Imm Gran Pct Auto 0.9 H 0.0-0.4 - % Lymphocytes Percent Auto 23.0 20-40 - % Monocytes Percent Auto 10.1 2-11 - % Eosinophils Percent Auto 2.2 0-4 - % Basophils Percent Auto 1.0 0-2 - % NRBC Pct Auto 0.0 0.0-0.2 - /100WBC Neutrophils Absolute Auto 4.3 2.0-8.3 - x10* 3/uL Imm Gran Abs Auto 0.06 H 0.00-0.03 - X10*3/uL Lymphocytes Absolute Auto 1.6 1.2-4.9 - X10* 3/uL Monocytes Absolute Auto 0.7 0.1-1.2 - X10*3/ uL Eosinophils Absolute Auto 0.2 0.0-0.4 - X10* 3/uL Basophils Absolute Auto 0.1 0.0-0.2 - X10*3/ uL NRBC Abs Auto 0.000 0.0-0.012 - X10*3/uL L ab:Comprehensive Dexter. Panel Fast (Order Date - 10/11/2023) (Collection Date - 10/11/2023) Value Reference Range Sodium 139 135-145 - mmol/L Bilirubin Total 0.6 0.0-1.0 - mg/dL Aspartate Amino Transferase 21 5-37 - U/L Alanine Aminotransferase 29 0-40 - U/L Total Protein 7.0 6.5-8.0 - g/dL Albumin Level 4.2 3.5-5.0 - g/dL Alkaline Phosphatase 61 39-117 - U/L Potassium 4.2 3.3-5.1 - mmol/L Chloride 106 96-108 - mmol/L Carbon Dioxide 26 22-29 - mmol/L Anion Gap 11 L 12-20 - Blood Urea Nitrogen 14 9-16 - mg/dL Creatinine 1.04 0.5-1.4 - mg/dL Estimated Glomerular Filt Rate > 60 - Glucose Fasting 98 60-99 - mg/dL Calcium 9.3 8.4-10.2 - mg/dL L ab:PSA,Total (Free>4and<10) (Order Date - 10/11/2023) (Collection Date - 10/11/2023) Value Reference Range PSA,Total (Free>4and<10) 0.42 0.00-4.00 - ng/ mL * Examination: G eneral Examination: GENERAL APPEARANCE: w ell developed, well nourished, in no acute distress. HEAD: n ormocephalic, atraumatic. EYES: p upils equal, round, reactive to light and accommodation, sclera non-icteric. EARS: n ormal. ORAL CAVITY: m ucosa moist. THROAT: c lear. NECK/THYROID: n cierra supple, full range of motion, no cervical lymphadenopathy, no bruits. SKIN: w arm and dry, no suspicious lesions. HEART: r egular rate and rhythm, S1, S2 normal, no murmurs.? LUNGS: c lear to auscultation bilaterally. ABDOMEN: s oft, nontender, nondistended, bowel sounds present, normal, no organomegaly , no masses palpable. RECTAL EXAM: n ormal tone, no external hemorrhoids, no masses palpable, prostate normal, stool guaiac negative. MALE GENITOURINARY: u ncircumcised, testes descended bilaterally, no testicular mass. EXTREMITIES: n o clubbing, cyanosis, or edema. NEUROLOGIC: n onfocal, motor strength normal upper and lower extremities, sensory exam intact. Assessment: * Assessment: 1. A nnual physical exam - Z00.00 (Primary) 2 . G astroesophageal reflux disease without esophagitis - K21.9 3 . S ensorineural hearing loss (SNHL) of both ears - H90.3 4 .?Essential hypertension - I10 5 . P rimary insomnia - F51.01 6 . C olon cancer screening - Z12.11 7 . D epression screening - Z13.31 Plan: * Treatment: 2. G astroesophageal reflux disease without esophagitis Stop Omeprazole Tablet Delayed Release, 20 MG, TAKE 1 TABLET BY MOUTH EVERY DAY 30 MINUTES BEFORE MORNING MEAL FOR 30 DAYS; S tart Omeprazole Capsule Delayed Release, 20 MG, 1 capsule 30 minutes before morning meal, Orally, Once a day, 90 days, 90, Refills 3. Notes: will continue current regiment. Referral To:Marsha Naidu Nutrition Reason:gastroesophageal reflux disease Weight 3. S ensorineural hearing loss (SNHL) of both ears Notes: referral to [facility] for hearingtest will be faxed. 4. E ssential hypertension Continue Valsartan-hydroCHLOROthiazide Tablet, 80-12.5 MG, TAKE 1 TABLET BY MOUTH EVERY DAY. ? Notes: stable, a goal, will continue current regiment. 5. P rimary insomnia Continue traZODone HCl Tablet, 50 MG, 1 tablet at bedtime as needed, Orally, Once a day. Notes: doing well, will continue current regiment. 6. C olon cancer screening L AB: Occult Blood, Stool, Guaiac N egative Value Reference Range O ccult Blood, Stool, Guaiac Neg Notes: guaiac negative.??7.?Depression screening? Notes: negative screen.?? * Procedure Codes: 8 7930 TEST FOR BLOOD, FECES * Preventive Medicine: Counseling: C are goal follow-up plan: C ounseling for abnormal BMI provided?Yes, A radha Normal BMI Follow-up G iving encouragement to exercise. * Follow Up: 1 Year * * Sign off status: Completed true * Provider: Dexter Farichild MD Date: 0 10/25/2023 Generated for Samira weber/Kavitha/Bobransmitting on: 1 03/17/2024 10:44 AM EST History and Physical Notes * HPI (History of Present Illness) Category Sub-Category Detail Notes Category Not es Symptom(s) patient is a 52 yo male here for annual visit with review of recent labs and follow up of chronic issues, having trouble hearing Depression Screening PHQ-9 Little inte rest or pleasure in doing things: Not at all Feeling down, depressed, or hopeless: No t at all Trouble falling or staying asleep, or sl eeping too much: Not at all Feeling tired or having little energy: N ot at all Poor appetite or overeating: Not at all Feeling bad about yourself o r that you are a failure, or have let yourself or your family down: Not at all Trouble concentrating on thi ngs, such as reading the newspaper or watching television: Not at all Moving or speaking so slowly that other people could have noticed; or the opposite, being so fidgety or restless that you have been moving around a lot more than usual: Not at all Thoughts that you would be b seb off or of hurting yourself in some way: Not at all Total Score: 0 Interpretation and Intervention Depression [place] Findings: Negative Follow-Up for Depression: : review of PH Q-9 found negative result, no follow-up needed SDOH Questions SDOH Questions In the past year have you been worried about losing housing?: No In the past year have you or any family members you live with been unable to get any of the following when it was really needed? Check all that apply:: None Communication Needs Communication Needs Does the patient have a hearing impairment: No Does the patient have a vision impairmen t?: Yes If yes, what is the vision impairment?: Glasses Does the patient have a cognition impair ment?: No Examination Category Sub-Category Detail Notes Category Not es General Examination GENERAL APPEARANCE: well dev eloped, well nourished, in no acute distress HEAD: normocephalic, atrau matic EYES: pupils equal, round, reactive to light and accommodation, sclera non-icteric EARS: normal THROAT: clear NECK/THYROID: neck supple, full ra nge of motion, no cervical lymphadenopathy, no bruits HEART: regular rate and rhy thm, S1, S2 normal, no murmurs LUNGS: clear to auscultatio n bilaterally ABDOMEN: soft, nontender, non distended, bowel sounds present, normal, no organomegaly , no masses palpable NEUROLOGIC: nonfocal, motor stre ngth normal upper and lower extremities, sensory exam intact SKIN: warm and dry, no alyse picious lesions EXTREMITIES: no clubbing, cyanosi s, or edema MALE GENITOURINARY: uncircumcised, teste s descended bilaterally, no testicular mass RECTAL EXAM: normal tone, no exte rnal hemorrhoids, no masses palpable, prostate normal, stool guaiac negative ORAL CAVITY: mucosa moist Consultation Request Notes Referral Date Referring Provider Referred Provider Not es 10/25/2023 Sen Fairchild Zoraida gastr oesophageal reflux disease Weight
--- OUTSIDE RECORDS SUMMARY | 2024-02-04 05:00 | XMS_ITS ---
Author Organization [facility] Address [address] [place] [address] Care Team Providers Care Tube Bender Name Role Phone Sen Fairchild MD Primary Care Provider Arleth Santillan [phone] Encounters Encounter Location Date Provider Diagnosis [address] [address] 02/04/2024 Arleth Porras Plan Of Treatment Next Appt Details Provider Name:Arleth merlos, 03/05/2025 09:00:00 AM, [address] [place] [address], [phone], Progress Notes * Zacarias EVANS KDOB: [birth year] (54 yo M)Acc No.[id number]:02/04/2024 Progress Note Patient: Zacarias MEDINA Provider: Xuan Porras DPM :1970 A ge:53 Y S ex:Male Date:02/04/2024 Address:[address] [place] [address] Pcp:Sen Fairchild MD Subjective: * Chief Complaints: * * Medical History: Objective: * Vitals: Assessment: Plan: * Treatment: * Images: * The named appointment provid er may or may not be the originator of this progress note, and it is not deemed complete until electronically signed by the appointment provider. Sign off status: Pending * Provider: Xuan Porras DPM Date: 04/06/2023 Generated for Samira Amador/Kathryn on: 03/17/2024 10:46 AM EST
--- OUTSIDE RECORDS SUMMARY | 2024-03-02 06:27 | XMS_ITS ---
Author Organization Sen Fairchild MD Address [address] [place] [phone] Care Team Providers Care Family Resource Coordinator Name Role Phone Sen Fairchild Primary Care Provider REASON FOR VISIT ins referral Encounters Encounter Location Date Provider Diagnosis Sen Fairchild MD [address] [place] [phone] 03/02/2024 Sen Fairchild Plan Of Treatment Next Appt Details Provider Name:Sen Gamboa ier, 01/29/2025 10:00:00 AM, [address], Suite [facility], [place], [place], [phone], Progress Notes * Herman EVANS KDOB: 3 (53 yo M)Acc No.[id number]:03/02/2024 Patient: Herman Goel :1970 A ge:53 Y S ex:Male Address:[address] [place] [address] [place] [address] * true * Date: Generated for Samira weber/Kavitha/Loresmitting on: 03/17/2024 10:44 AM EST
--- OUTSIDE RECORDS SUMMARY | 2024-03-26 02:45 | XMS_ITS ---
Author Organization Sen Fairchild MD Address [address] [place] [phone] Care Team Providers Care Watch Supervisor Name Role Phone Sen Fairchild Primary Care Provider [phone] Allergies Allergen (clinical drug ingredient) Drug/Non Drug Allergy documented on EMR Reaction Allergy Type Onset Date Status lisinopril Lisinopril cough Drug Allergy Activ e REASON FOR VISIT REGARDING PT EVAL needs MRI Medications Medication SIG (Take, Route, Frequency, Duration) Notes Start Date End Date Status Valsartan-hydroCHLOROthi azide 80-12.5 MG TAKE 1 TABLET BY MOUTH EVERY DAY Active Ibuprofen 800 MG TAKE 1 TABLET BY SUNDAY TH THREE TIMES A DAY for 30 Active Omeprazole 20 MG 1 capsule 30 minutes before morning meal Orally Once a day for 90 days 10/25/2023 Active traZODone HCl 50 MG 1 tablet at bedtime as needed Orally Once a day Active Nitrostat 0.3 MG as directed Sublingu al for severe esophagus spasm for 30 days 11/07/2018 Not-Taking Paxil 10 MG TAKE 1 TABLET BY SUNDAY TH IN THE MORNING for 60 Not-Taking Problems Problem Type SNOMED Code ICD Code Onset Dates Problem Status W/U Status Risk Notes Problem 120475140 Cervical disc disease (M50.90) Active confirmed Vital Signs Blood pressure systolic 132 mm Hg 03/26/19 25 Blood pressure diastolic 84 mm Hg 025 Height 68 in 03/26/2024 Weight 225 lbs 03/26/2024 BMI 34.21 kg/m2 03/26/2024 Encounters Encounter Location Date Provider Diagnosis Sen Fairchild MD [address] [place] [address] [place] [phone] 03/26/2024 Sen Fairchild Cervical disc disease M50.90 Assessments Encounter Date Diagnosis (ICD Code) Assessment Notes Treatment Notes Treatment Clinical Notes Section Notes 03/26/2024 Cervical disc disease (ICD-10 - M50.90) order faxed to [facility] , pending diagnostic testing Plan Of Treatment Treatment Notes Assessment Notes Cervical disc disease order faxed to [facility] , pending diagnostic testing Pending Test Test Name Order Date MRI CERVICAL SPINE NO CONTRAST Next Appt Details Provider Name:Sen Gamboa ier, 01/29/2025 10:00:00 AM, [address] [place] [address], Suite [facility], [place], [place], [phone], Progress Notes * Herman EVANS KDOB: 3 (53 yo M)Acc No.[id number]:03/26/2024 Progress Notes Patient: Emiliano HANSAHerman Provider: Dexter Fairchild MD :1970 A ge:53 Y S ex:Male Date:03/26/2024 Address:[address] [id number] Subjective: * Chief Complaints: * R EGARDING PT EVAL needs MRI * HPI: S ymptom(s): patient is a 53 yo male here to discuss ongoing issues, has been seeing physical therapy. getting numbness into arm and fingers. almost like pins and needles. no weakness. physical therapy wants mri./ getting tightneass in pec as well. * ROS: G eneral/Constitutional: Denies C hills. D enies F atigue. D enies F ever. D enies H eadache. E NT: Patient denies d ecreased sense of smell, any loss of taste, sore throat. D enies S ore throat. R espiratory: Denies C ough. D enies S hortness of breath at rest. D enies S hortness of breath with exertion. G astrointestinal: Denies D iarrhea. D enies N ausea. M usculoskeletal: Patient denies m uscle aches. P eripheral Vascular: Patient denies r ed and blue toes. * Medical History: * Surgical History: * Hospitalization/Major Diagno stic Procedure: * Medications: T akingOmeprazole 20 MG Capsule Delayed Release 1 capsule 30 minutes before morning meal Orally Once a day traZODone HCl 50 MG Tablet 1 tablet at bedtime as needed Orally Once a day Valsartan-hydroCHLOROthiazide 80-12.5 MG Tablet TAKE 1 TABLET BY MOUTH EVERY DAY Ibuprofen 800 MG Tablet TAKE 1 TABLET BY MOUTH THREE TIMES A DAY Taking Omeprazole 20 MG Capsule Delayed Release 1 capsule 30 minutes before morning meal Orally Once a day Taking traZODone HCl 50 MG Tablet 1 tablet at bedtime as needed Orally Once a day Taking Valsartan-hydroCHLOROthiazide 80-12.5 MG Tablet TAKE 1 TABLET BY MOUTH EVERY DAY Taking Ibuprofen 800 MG Tablet TAKE 1 TABLET BY MOUTH THREE TIMES A DAY Not-Taking/PRNPaxil 10 MG Tablet TAKE 1 TABLET BY MOUTH IN THE MORNING Nitrostat 0.3 MG Tablet Sublingual as directed Sublingual for severe esophagus spasm Not-Taking/PRN Paxil 10 MG Tablet TAKE 1 TABLET BY MOUTH IN THE MORNING Not-Taking/PRN Nitrostat 0.3 MG Tablet Sublingual as directed Sublingual for severe esophagus spasm * Allergies: L isinopril: coughyes[Allergies Verified] Objective: * Vitals: H t: 68, Wt: 225, BMI:34.21, BP:132/84, Wt-k.06. * Examination: G eneral Examination: GENERAL APPEARANCE: a lert, well hydrated, in no distress.? HEAD: n ormocephalic. SKIN: g ood turgor. HEART: n o murmurs, regular rate and rhythm. LUNGS: n o wheezes, rales, rhonchi, good air movement, clear to auscultation bilaterally. Assessment: * Assessment: 1. C ervical disc disease - M50.90 (Primary) Plan: * Treatment: * Procedure Codes: * * Sign off status: Completed true * Provider: Dexter Fairchild MD Date: 0 03/26/2024 Generated for Samira weber/Kavitha/Coralitting on: 03/17/2024 10:45 AM EST History and Physical Notes * HPI (History of Present Illness) Category Sub-Category Detail Notes Category Not es Symptom(s) patient is a 53 yo male here to discuss ongoing issues, has been seeing physical therapy. getting numbness into arm and fingers. almost like pins and needles. no weakness. physical therapy wants mri./ getting tightneass in pec as well Examination Category Sub-Category Detail Notes Category Not es General Examination GENERAL APPEARANCE: alert, w ell hydrated, in no distress HEAD: normocephalic HEART: no murmurs, regular rate and rhythm LUNGS: no wheezes, rales, r honchi, good air movement, clear to auscultation bilaterally SKIN: good turgor
--- OUTSIDE RECORDS SUMMARY | 2024-03-27 07:45 | XMS_ITS ---
Author Organization [facility] Address [address] [place] [address] Care Team Providers Care Store Specialist Name Role Phone Sen Fairchild MD Primary Care Provider Arleth Santillan [phone] Encounters Encounter Location Date Provider Diagnosis [address] [phone] 03/27/2024 Arleth Porras Plan Of Treatment Next Appt Details Provider Name:Arleth merlos, 03/05/2025 09:00:00 AM, [address] [place] [address], [phone], Progress Notes * Zacarias EVANS KDOB: 3 (54 yo M)Acc No.[id number]:03/27/2024 Progress Note Patient: Zacarias MEDINA Provider: Xuan Porras DPM :1970 A ge:53 Y S ex:Male Date:03/27/2024 Address:[address] [place] [address] Pcp:Sen Fairchild MD Subjective: * Chief Complaints: * * Medical History: Objective: * Vitals: Assessment: Plan: * Treatment: * Images: * The named appointment provid er may or may not be the originator of this progress note, and it is not deemed complete until electronically signed by the appointment provider. Sign off status: Pending * Provider: Xuan Porras DPM Date: 0 03/27/2024 Generated for Samira Amador/Kathryn on: 03/17/2024 10:46 AM EST
--- OUTSIDE RECORDS SUMMARY | 2024-04-06 11:18 | XMS_ITS ---
Author Organization Sen Fairchild MD Address [address] [place] [phone] Care Team Providers Care Brake Mechanic Name Role Phone Sen Fairchild Primary Care Provider REASON FOR VISIT MRI results Encounters Encounter Location Date Provider Diagnosis Sen Fairchild MD [address] [place] [phone] 04/06/2024 Sen Fairchild Plan Of Treatment Next Appt Details Provider Name:Sen Gamboa ier, 01/29/2025 10:00:00 AM, [address] [facility], Suite [facility], [place], [place], [phone], Progress Notes * Herman EVANS KDOB: 3 (53 yo M)Acc No.[id number]:04/06/2024 Patient: Herman MEDINA :1970 A ge:53 Y S ex:Male Address:[address] [place] [address] [place] [address] * true * Date: Generated for Samira weber/Kavitha/Loresmitting on: 03/17/2024 10:45 AM EST
--- OUTSIDE RECORDS SUMMARY | 2024-04-10 02:21 | XMS_ITS ---
Author Organization Sen Fairchild MD Address [address] [place] [phone] Care Team Providers Care Brick Grader Name Role Phone Sen Fairchild Primary Care Provider [phone] Reason For Referral Reason please eval and catalina t Diagnosis 1 Cervical disc diseas e (M50.90) Diagnosis 2 Cervical neuropathy (G54.2) Referral Organization Sen Fairchild MD Referring Provider First Name Sen Referring Provider Last Name Devorah Referring Provider Speciality Internal M edicine Referred Provider Felipe Soliz Referred Provider Specialty Physical Med icine and Rehabilitation General Notes Emerald Bravo 0 04/14/2024 09:43:56 AM > ins referral faxed with notes appt is with Shelly Olguin Annette 04/30/2024 02:52:01 PM >referral info mailed Referral Priority Routine Referral Appointment Date 05/25/2024 REASON FOR VISIT RE:MRI results Encounters Encounter Location Date Provider Diagnosis Sen Fairchild MD [address] [facility] [address] [place], [place] [phone] 04/10/2024 Sen Fairchild Plan Of Treatment Referrals Referral Date Details 04/10/2024 04/10/2024, please emperatriz nobles and Felipe hooks Next Appt Details Provider Name:Sen Gamboa ier, 01/29/2025 10:00:00 AM, [address] [facility], [address], [place], [place], [phone], Progress Notes * Zacarias EVANS KDOB: 3 (53 yo M)Acc No.[id number]:04/10/2024 Patient: Zacarias MEDINA George :1970 A ge:53 Y S ex:Male Address:[address] [place] [phone] Subjective: * Chief Complaints: * R E:MRI results * Medical History: * Surgical History: * Hospitalization/Major Diagno stic Procedure: * Medications: Objective: * Vitals: * Physical Examination: Assessment: Plan: * Treatment: * Procedure Codes: * true * Date: Generated for Samira weber/Kavitha/eTransmitting on: 03/17/2024 10:45 AM EST Consultation Request Notes Referral Date Referring Provider Referred Provider Not es 04/10/2024 Sen Fairchild Scott please latia l and treat
--- OUTSIDE RECORDS SUMMARY | 2024-07-14 08:01 | XMS_ITS ---
Author Organization Sen Fairchild MD Address [address] [place] [phone] Care Team Providers Care Flue Gas Analyst Name Role Phone Sen Fairchild Primary Care Provider [phone] REASON FOR VISIT ins referral Encounters Encounter Location Date Provider Diagnosis Sen Fairchild MD [address] [place] [phone] 07/14/2024 Sen Fairchild Plan Of Treatment Next Appt Details Provider Name:Sen Gamboa ier, 01/29/2025 10:00:00 AM, [address], Suite [facility], [place], [place], [phone], Progress Notes * Herman EVANS KDOB: 3 (53 yo M)Acc No.[id number]:07/14/2024 Patient: Herman MEDINA :1970 A ge:53 Y S ex:Male Address:[address] [place] [address] [place] [address] * true * Date: Generated for Samira weber/Kavitha/Loresmitting on: 03/17/2024 10:45 AM EST
--- OUTSIDE RECORDS SUMMARY | 2025-01-15 02:00 | XMS_ITS ---
Author Organization Sen Fairchild MD Address [address] [place] [phone] Care Team Providers Care Coal Feeder Operator Name Role Phone Sen Fairchild Primary Care Provider Results Component Value Reference Range Notes UA ClnCatch+Micro w/rflx Cul t (Not yet reviewed by provider) Interpretation: Performing Lab:[facility], [address] [place] [phone] Notes/Report: Urine, Clean Catch Color Urine Yellow Appearance Urine Clear PH 6.0 5.0-9.0 Glucose Urine UA Negative Negative mg/dL Urine Blood Negative Negative Specific [place] - Urine 1.020 1.005-1.025 Urine Protein Negative Neg-Trace mg/dL Urine Ketones Negative Negative mg/dL Nitrite Urine Negative Negative Leukocyte Esterase Urine Negative Negative RBC Urine 0-2 0-2 /HPF WBC Urine 0-5 0-5 /HPF Squamous Epithelial Cell Urine 0-2 0-2 /HPF Bacteria Urine None Seen None Seen Hyaline Casts Urine 0-2 0-2 /LPF REASON FOR VISIT yearly fasting labs Encounters Encounter Location Date Provider Diagnosis Sen Fairchild MD [address] [place], [place] [phone] 01/15/2025 Sen Fairchild Blood tests for routine general physical examination Z00.00 and Essential hypertension I10 Assessments Encounter Date Diagnosis (ICD Code) Assessment Notes Treatment Notes Treatment Clinical Notes Section Notes 01/15/2025 Blood tests for routine general physical examination (ICD-10 - Z00.00) 01/15/2025 Essential hypertension (ICD-10 - I10) Plan Of Treatment Pending Test Test Name Order Date Complete Blood Count Auto Diff 5 Comprehensive Bim. Panel Fast Lipid Panel 01/15/2025 PSA,Total (Free>4and<10) 01/15/2025 UA ClnCatch+Micro w/rflx Cult 01/15/2025 Next Appt Details Provider Name:Sen Gamboa ier, 01/29/2025 10:00:00 AM, [address], [address], [place], [place], [phone], Progress Notes * Zacarias EVANS KDOB: 3 (54 yo M)Acc No.[id number]:01/15/2025 Progress Note Patient: Emiliano HANSAZacarias Provider: Dexter Fairchild MD :1970 A ge:54 Y S ex:Male Date:01/15/2025 Address:[address] [place] [address] Subjective: * Chief Complaints: * 1 . Yearly fasting labs. * Medical History: Objective: * Vitals: Assessment: * Assessment: 1. B lood tests for routine general physical examination - Z00.00 (Primary) 2 .?Essential hypertension - I10 Plan: * Treatment: 2. E ssential hypertension L AB: Complete Blood Count Auto Diff L AB: Comprehensive Bim. Panel Fast L AB: Lipid Panel L AB: PSA,Total (Free>4and<10) L AB: UA ClnCatch+Micro w/rflx Cult (Collection Date & Time - 01/15/2025 07:00 AM) * Procedure Codes: 3 6415 VENIPUNCT, ROUTINE* * * The named appointment provid er may or may not be the originator of this progress note, and it is not deemed complete until electronically signed by the appointment provider. Sign off status: Pending * Provider: Dexter Fairchild MD Date: 03/17/2024 Generated for Samira weber/Kavitha/Coralitting on: 03/17/2024 10:45 AM EST
[2025-01-15 10:14] LABS: MANUAL DIFF FLAG NO
[2025-01-15 10:36] LABS: Appearance Urine Clear; Glucose Urine UA Negative (Negative); PH 6.0 (5.0-9.0); Specific Gravity - Urine 1.020 (1.005-1.025)
--- OUTSIDE RECORDS SUMMARY | 2025-01-15 10:46 | XMS_ITS | Patient Health Record ---
Author Organization Sen Fairchild MD Address [address] [place], [place] [phone] Care Team Providers Care Wireless Sales Associate Name Role Phone Sen Fairchild Primary Care Provider Allergies Allergen (clinical drug ingredient) Drug/Non Drug Allergy documented on EMR Reaction Allergy Type Onset Date Status lisinopril Lisinopril cough Drug Allergy Activ e Results Component Value Reference Range Notes UA ClnCatch+Micro w/rflx Cul t (Not yet reviewed by provider) Interpretation: Performing Lab:[facility], [address] [place] [phone] Notes/Report: Urine, Clean Catch Color Urine Yellow Appearance Urine Clear PH 6.0 5.0-9.0 Glucose Urine UA Negative Negative mg/dL Urine Blood Negative Negative Specific [place] - Urine 1.020 1.005-1.025 Urine Protein Negative Neg-Trace mg/dL Urine Ketones Negative Negative mg/dL Nitrite Urine Negative Negative Leukocyte Esterase Urine Negative Negative RBC Urine 0-2 0-2 /HPF WBC Urine 0-5 0-5 /HPF Squamous Epithelial Cell Urine 0-2 0-2 /HPF Bacteria Urine None Seen None Seen Hyaline Casts Urine 0-2 0-2 /LPF Reason For Referral Reason please eval and [...] Referral Priority Routine Referral Appointment Date 05/25/2024 Medications Medication SIG (Take, Route, Frequency, Duration) Notes Start Date End Date Status Valsartan-hydroCHLOROthi azide 80-12.5 MG TAKE 1 TABLET BY MOUTH EVERY DAY for 90 Active Omeprazole 20 MG TAKE 1 CAPSULE BY MO UT EVERY DAY 30 MINUTES BEFORE MORNING MEAL FOR 90 DAYS for 90 Active Ibuprofen 800 MG TAKE 1 TABLET BY SUNDAY TH THREE TIMES A DAY for 30 Active traZODone HCl 50 MG 1 tablet at bedtime as needed Orally Once a day Active Paxil 10 MG TAKE 1 TABLET BY SUNDAY TH IN THE MORNING for 60 Not-Taking Nitrostat 0.3 MG as directed Sublingu al for severe esophagus spasm for 30 days 11/07/2018 Not-Taking Immunizations Vaccine Route Administration Date Status Comme nts [...] 01/21/2017 Refused Fluarix Quadrivalent Unknown 04/17/2022 Refused Social History Tobacco Use: Social History Observation [...] Problem Status W/U Status Risk Notes Problem Insomnia (782738078) Insomnia (780.52) Active confirmed Problem 7426024 Primary insomnia (F51.01) Active confirmed Problem 339478300 Gastroesophageal reflux disease without esophagitis (K21.9) Active confirmed Problem 31711446 Essential hypertension (I10) Active confirmed Problem 071931269 Cervical disc disease (M50.90) Active confirmed Problem 7333813910318 Cervical neuropa thy (G54.2) Active confirmed Problem 5074367 Diverticulitis o f large intestine with perforation without bleeding (K57.20) Active confirmed Problem 939320459 Schatzki's ring (K22.2) Active confirmed Problem 46888187 Sleep disorder (G47.9) Active confirmed Problem 50092813 TRAM (obstructive sleep apnea) (G47.33) Active confirmed Problem 652615069 BMI 34.0-34.9,ad ult (Z68.34) Active confirmed Problem 924268697 Neck arthritis (M46.92) Active confirmed Problem 287015457 Sensorineural hearing loss (SNHL) of both ears (H90.3) Active confirmed Vital Signs Blood pressure diastolic 84 mm Hg 03/26/2024 Height 68 in 03/26/2024 Blood pressure systolic 132 mm Hg 03/26/2024 Weight 225 lbs 03/26/2024 BMI 34.21 kg/m2 03/26/2024 Encounters Encounter Location Date Provider Diagnosis Sen Fairchild MD [address] [place] [phone] 01/15/2025 Sen Fairchild Blood tests for routine general physical examination Z00.00 and Essential hypertension I10 Sen Fairchild MD [address] [place] [phone] 03/26/2024 Sen Fairchild Cervical disc diseas e M50.90 Sen Fairchild MD [address] [place] [id number] 03/02/2024 Sen Fairchild MD [address] [place] [id number] 07/14/2024 Sen Fairchild MD [address] [place] [id number] 04/06/2024 Sen Fairchild MD [address] [facility] [address] [place] [phone] 04/10/2024 Sen Fairchild Assessments Encounter Date Diagnosis (ICD Code) Assessment Notes Treatment Notes Treatment Clinical Notes Section Notes 01/15/2025 Blood tests for routine general physical examination (ICD-10 - Z00.00) 03/26/2024 Cervical disc disease (ICD-10 - M50.90) order faxed to [facility] , pending diagnostic testing 01/15/2025 Essential hypertension (ICD-10 - I10) Plan Of Treatment Pending Test Test Name Order Date MRI CERVICAL SPINE NO CONTRAST 5 Complete Blood Count Auto Diff 5 Comprehensive [place]. Panel Fast 5 Lipid Panel 01/15/2025 PSA,Total (Free>4and<10) 01/15/2025 UA ClnCatch+Micro w/rflx Cult 01/15/2025 Next Appt Details Provider Name:Sen high, 01/29/2025 10:00:00 AM, [address] [place] [address], Suite [facility], [place], [place], [phone], Insurance Providers Payer Name Payer Address Payer Phone Subscriber Number Group Number Insured Name Patient Relationship to Insured Coverage Start Date Coverage End Date [employer]IELD [address] [place], [place] [phone] [id number] Zacarias Evans Self - patient is the insured Medical (General) History Medical History History ICD Code Had an elevated blood sugar by home test that he did not know how to do. when tested here was normal discussed need for colonosco py at 47 and he wants to wait until. colonoscopy 07/10/22 repeat 5y Surgical History Surgery Date(Month/Year) Repair of Umbilical Hernia w/o Mesh (Dr. Ledesma) 03/2018
--- OUTSIDE RECORDS SUMMARY | 2025-01-15 10:46 | XMS_ITS | Clinical Summary ---
Author Organization [facility] Address [address] [place] [address] Care Team Providers Care Switchgear Repairer Name Role Phone Sen Fairchild MD Primary Care Provider Social History Tobacco Use Types Packs/Day Years Used Date Smoking Tobacco: Never Assessed Sex and Gender Information Value Date Recorded Sex Assigned at Not on file Legal Sex Male 9:20 AM EDT Gender Identity Not on file Sexual Orientation Not on file Plan of Treatment Health Maintenance Due Date Last Done Comments Hepatitis C Virus Screening 1970 HIV Screening 1985 DTaP/Tdap/Td Vaccines (1 - Tdap) 11/25/1991 Hepatitis B Vaccines (1 of 3 - 19+ 3-dose series) 10/28 Colonoscopy 2017 Pneumococcal Vaccines 50+ (1 of 1 - PCV) 2022 Zoster (Shingles) Vaccine (1 of 2) 2022 Influenza Vaccine 09/25/2024 COVID-19 Vaccine (1 - 2023- season) 2024 RSV Vaccine 50 years and old er and Patients (1 - 1-dose 75+ series) 11/25/2047 Insurance BLUE CROSS OUT OF STATE - O Care Teams Switchgear Repairer Relationship Specialty Start Date End Date Sen Fairchild MD [address] [place] [address] [place], [place] [address] PCP - General Internal Medicine 09/02/18
--- OUTSIDE RECORDS SUMMARY | 2025-01-15 10:47 | XMS_ITS | Patient Health Record ---
Author Organization [facility] Address [address] [place] [address] Care Team Providers Care Veterinary Dentist Name Role Phone Sen Fairchild MD Primary Care Provider Arleth Santillan Unavailable [phone] Allergies No Known Allergies Reason For Referral Diagnosis 1 Plantar wart (B07.0) Diagnosis 2 Tinea unguium (B35.1 ) Diagnosis 3 Pain in right toe(s) (M79.674) Diagnosis 4 Pain in left toe(s) (M79.675) Diagnosis 5 Left foot pain (M79. 672) Diagnosis 6 Tinea pedis of both feet (B35.3) Referring Provider First Name Sen Referring Provider Last Name Devorah Referred Organization [facility] Referred Provider Arleth Porras Referred Address [address] [place], [place],[address], Referred Provider Specialty Podiatry Referral Priority Routine Medications Medication SIG (Take, Route, Frequency, Duration) Notes Start Date End Date Status Ciclopirox Olamine 0.77 % 1 application Externally Twice a day; Duration: 30 days Not-Taking traZODone HCl 50 MG 1 tablet at bedtime as needed Orally Once a day; Duration: 30 day(s) Active Paxil 20 MG 1 tablet in the morn ing Orally Once a day Not-Taking Vitamin C Active Ciclopirox Olamine 0.77% external Apply to effected areas twice a day; Duration: 30 days 05/10/2015 Not-Takin g Vitamin D Active Valsartan 80 MG 1 tablet Orally Once a day Active Ciclopirox Olamine 0.77 % 1 application Externally Twice a day; Duration: 30 days Active Ciclopirox Olamine 0.77 % 1 application Externally Twice a day to skin of feet including between the toes; Duration: 30 days Active Folic Acid 800 MCG 1 tablet Orally Once a day Not-Taking Magnesium Not-Taking LamISIL 250mg 1 tablet for 7 days, stop for 3 weeks repeat cycle orally 1 tablet for 7 days,stop for 3 weeks repeat cycle; Duration: 365 days Not-Taking Calcium Not-Taking Omeprazole 20 MG 1 capsule 30 minutes before morning meal Orally Once a day Active Immunizations Vaccine Route Administration Date Status Comme nts Influenza Unknown 08/14/2024 Refused Social History Tobacco Use: Social History Observation Description Date Details (start date - stop date) Never Smoker NA - NA Tobacco use other than smoking: Question Answer Notes Are you an other tobacco user? No Tobacco Control (Standard) Question Answer Notes Tobacco use: Nonsmoker Additional Findings: Tobacco non-user Current no nsmoker AUDIT-C (Standard) Question Answer Notes Did you have a drink containing alcohol in the p ast year? No Points 0 Interpretation Negative Problems Problem Type SNOMED Code ICD Code Onset Dates Problem Status W/U Status Risk Notes Problem Plantar wart (10996322) Plantar wart (B07.0) Active confirmed Vital Signs Blood pressure diastolic 85 mm Hg 11/13/2024 Height 5ft 8in in 11/13/2024 Blood pressure systolic 120 mm Hg 11/13/2024 Weight 225 lbs 11/13/2024 BMI 34.21 kg/m2 11/13/2024 Encounters Encounter Location Date Provider Diagnosis [facility] [address] [phone] 05/13/2024 Arleth Perica Fungal infection of nail B35.1 ; Tinea pedis of both feet B35.3 ; Plantar wart B07.0 ; Left foot pain M79.672 ; Pain in right toe(s) M79.674 and Pain in left toe(s) M79.[address] [facility] [address] 08/14/2024 Arleth Perica Fungal infection of nail B35.1 ; Tinea pedis of both feet B35.3 ; Pain in right toe(s) M79.674 and Pain in left toe(s) M79.[address] [facility] [phone] 11/13/2024 Arleth Porras Fungal infection of nail B35.1 ; Tinea pedis of both feet B35.3 ; Pain in right toe(s) M79.674 and Pain in left toe(s) M79.[address] [facility] [address] 01/30/2024 Arleth Porras [address] [phone] 03/18/2024 Arleth Porras Assessments Encounter Date Diagnosis (ICD Code) Assessment Notes Treatment Notes Treatment Clinical Notes Section Notes 05/13/2024 Tinea pedis of both feet (ICD-10 - B35.3) 05/13/2024 Fungal infection of nail (ICD-10 - B35.1) 08/14/2024 Fungal infection of nail (ICD-10 - B35.1) 11/13/2024 Tinea pedis of both feet (ICD-10 - B35.3) 11/13/2024 Fungal infection of nail (ICD-10 - B35.1) 11/13/2024 Pain in right toe(s) (ICD-10 - M79.674) 08/14/2024 Pain in right toe(s) (ICD-10 - M79.674) 08/14/2024 Tinea pedis of both feet (ICD-10 - B35.3) 05/13/2024 Plantar wart (ICD-10 - B07.0) 05/13/2024 Left foot pain (ICD-10 - M79.672) 08/14/2024 Pain in left toe(s) (ICD-10 - M79.675) 11/13/2024 Pain in left toe(s) (ICD-10 - M79.675) 05/13/2024 Pain in right toe(s) (ICD-10 - M79.674) 05/13/2024 Pain in left toe(s) (ICD-10 - M79.675) Plan Of Treatment Pending Test Test Name Order Date *Liver Function Test (LFT) 11/16/2022 *Liver Function Test (LFT) 07/19/2023 *Liver Function Test (LFT) 11/06/2023 *Liver Function Test (LFT) 05/13/2024 X ray : Foot, left 3V 03/30/2022 X ray : Foot, right 3V 03/30/2022 [id number] NAIL, 6 OR MORE 05/10/2015 [id number] NAIL, 6 OR MORE 09/15/2015 [id number] NAIL, 6 OR MORE 03/07/2016 [id number] NAIL, 1-5 04/05/2015 Next Appt Details Provider Name:Arleth merlos, 03/05/2025 09:00:00 AM, [address] [place], [address], Insurance Providers Payer Name Payer Address Payer Phone Subscriber Number Group Number Insured Name Patient Relationship to Insured Coverage Start Date Coverage End Date [facility] [address] [place] [address] [id number] Bianca Evans Spouse - patient is the spouse of the insured Medical (General) History Medical History History ICD Code Arthritis Chicken pox Hypertension Surgical History Surgery Date(Month/Year) hernia 04/15
[2025-01-15 11:00] LABS: Hematocrit 44.7 % (42.0-52.0); Hemoglobin 15.1 g/dl (14.0-18.0); Imm Gran Abs Auto 0.11 X10*3/uL (0.00-0.03); Imm Gran Pct Auto 1.3 % (0.0-0.4); Lymphocytes Absolute Auto 2.1 X10*3/uL (1.2-4.9); Mean Corpuscular HGB Conc 33.8 g/dl (31.0-36.0); Mean Corpuscular Hemoglobin 29.7 pg (27.0-33.0); Mean Corpuscular Volume 87.8 fL (80.0-98.0); NRBC Abs Auto 0.000 X10*3/uL (0.0-0.012); NRBC Pct Auto 0.0 /100WBC (0.0-0.2); Platelet Count 266 X10*3/uL (160-400); Red Blood Count 5.09 X10*6/uL (4.60-5.80); White Blood Count 8.6 X10*3/uL (4.8-10.8)
[2025-01-15 11:24] LABS: Alanine Aminotransferase 52 U/L (0-40); Albumin Level 4.7 g/dL (3.5-5.0); Alkaline Phosphatase 71 U/L (39-117); Anion Gap 11 (12-20); Aspartate Amino Transferase 33 U/L (5-37); Blood Urea Nitrogen 23 mg/dL (9-16); Calcium 9.5 mg/dL (8.4-10.2); Carbon Dioxide 28 mmol/L (22-29); Chloride 106 mmol/L (96-108); Cholesterol 171 mg/dL (<200); Estimated Glomerular Filt Rate > 60; HDL Cholesterol 40 mg/dL (>40); Potassium 4.1 mmol/L (3.3-5.1); Sodium 141 mmol/L (135-145); Total Protein 7.5 g/dL (6.5-8.0); Triglycerides 130 mg/dL (<150)
[2025-01-15 11:30] LABS: PSA,Total (Free>4and<10) 0.49 ng/mL (0.00-4.00)
== END 2025-01-15 10:11 | disposition home or self-care (01) ==
LOC: HO.LNP 10:10
PROVIDERS: Visit Provider Internal Medicine
DX: Z00.00 Encounter for general adult medical examination without abnormal findings (principal); Z12.5 Encounter for screening for malignant neoplasm of prostate; Z13.6 Encounter for screening for cardiovascular disorders; I10 Essential (primary) hypertension
CPT/HCPCS: 80053; 80061; 81001; 84153; 85025